=== PATIENT | male | born 1950 | race Caucasian/White ===

== ENCOUNTER 2016-11-10 19:29 | Inpatient (IN) ==
[2016-11-10] MEDS ORDERED: MORPHINE 2 MG/1 ML SYRINGE IV STA (20:25)
[2016-11-10] MEDS ORDERED: NITROGLYCERIN 2% OINT 1 INCH/GM PACK TOP STA (20:25)
[2016-11-10] MEDS ORDERED: methylPREDNISolone SOD SUC 125 MG/2 ML VIAL IV STA (20:25)
[2016-11-10] MEDS ORDERED: LEVOFLOXACIN INJ 750 MG in PREMIX 1 EACH IV STA (20:25)
[2016-11-10] MEDS ORDERED: ASPIRIN 325 MG TABLET PO STA (20:25)
[2016-11-10] MEDS ORDERED: ONDANSETRON 4 MG/2 ML VIAL IV STA (20:25)
[2016-11-10] MEDS ORDERED: ALBUTEROL NEB SOLN 5 MG/ML 20 ML/BOTTLE CONT NEB STA (20:25)
[2016-11-10 20:35] LABS: Basophils # 0.1 10*3/uL (0.0-0.2); Basophils % 0.4 % (0.0-0.8); Eosinophils # 0.1 10*3/uL (0.0-0.87); Eosinophils % 0.4 % (0.00-10.9); Hematocrit 40.5 VOL% (42.0-52.0); Hemoglobin 13.6 GM/DL (14.0-18.0); Immature Granulocytes % 0.5 %; Lymphocytes # 0.8 10*3/uL (1.4-4.0); Lymphocytes % 4.1 % (21.2-54.2); Mean Corpuscular HGB Conc 33.6 GM/DL (32-36); Mean Corpuscular Hemoglobin 32 PG (27-34); Mean Corpuscular Volume 94.8 FL (87-102); Mean Platelet Volume 10.7 FL (9.6-12.0); Monocytes # 1.8 10*3/uL (0.11-0.8); Monocytes % 10.1 % (1.7-12.7); Neutrophils # 15.4 10*3/uL (1.4-7.4); Neutrophils % 84.5 % (38.7-73.9); Platelet Count 252 T/CUMM (130-400); Red Blood Count 4.27 MC/CUMM (3.8-5.5); Red Cell Distribution Width 11.4 % (9.3-17.3); White Blood Count 18.2 T/CUMM (4-12)
--- NOTE | 2016-11-10 20:37 | Emergency Department Note ---
Gustavo Barba Brooke, am scribing for, and in the presence of, Jaswinder Liang MD 20 :31. Garth Barba Charles R, MD, personally performed the services described in this documentation, ascribed by Sherine Chen in my presence, and it is both accurate and complete . Arrival - Arrival Chief Complaint: Chest Pain Stated Complaint: chest pain and shortness of breath ED Nursing Triage Note: pt to triage via wc with c/o having chest pain with sob , and nausea denies vomiting. 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 Mode of Arrival: Wheelchair Limitations: No Limitations Source: Patient, RN Notes Reviewed Time Seen by Provider: 11/10/16 19:58 - History of Present Illness HPI Narrative: Patient is a 66 year old male who presents to the ED with c/o SOB and chest pain that started about one hour prior to arrival. Patient says the chest pain is located in the center of his chest. He took two nitro prior to arrival but says they are old and he did not get a headache after taking them. Patient says he has also had a productive cough with clear mucous. He also complains of left side pain, fever, and chills but denies any body aches. His temperature during triage was 100.0. Patient says he does not have home oxygen but does have a nebulizer. He has PMHx of HTN, OK, and COPD. Patient says his OK was about four years ago and he did have some stents placed. Patient's Manager Publishing is Dr. Monique and his Primary Care Provider is Dr. Goodman. Patient is a smoker. Onset (ago): hour(s) (1) Allergies/Adverse Reactions: Allergies Allergy/AdvReac Type Severity Reaction Status Date / Time Penicillins Allergy Unknown/Unable Verified 10/11/16 18:13 to obtain Home Medications: Home Medications Medication Instructions Recorded Confirmed Type Aspirin [Ecotrin] 325 mg PO QAM 10/11/16 11/10/16 History Carvedilol [Coreg] 3.125 mg PO BID 10/11/16 11/10/16 History Furosemide Tab [Lasix Tab] 10 mg PO QAM 10/11/16 11/10/16 History Losartan Potassium 100 mg PO QAM 10/11/16 11/10/16 History Magnesium Chloride [Mag Delay] 64 mg PO QAM 10/11/16 11/10/16 History Minoxidil 2.5 mg PO BID 10/11/16 11/10/16 History Pantoprazole Tab [Protonix Tab] 40 mg PO QAM 10/11/16 11/10/16 History Roflumilast [Daliresp] 500 mcg PO QAM 10/11/16 11/10/16 History amLODIPine [Norvasc] 10 mg PO QAM 10/11/16 11/10/16 History buPROPion [Wellbutrin] 75 mg PO BID 10/11/16 11/10/16 History hydroCHLOROthiazide 25 mg PO QAM 10/11/16 11/10/16 History [Hydrochlorothiazide] Acetaminophen Tab [Tylenol Tab] 500 mg PO Q4H 11/10/16 11/10/16 History Albuterol Neb [Proventil Neb] 2.5 mg RESP TX BID 11/10/16 11/10/16 History Ipratropium/Albuterol Inhaler 1 - 2 puff INH QID PRN 11/10/16 11/10/16 History [Combivent Respimat Inhaler] Krill/Om-3/Dha/Epa/Phospho/Ast 1 each PO QAM 11/10/16 11/10/16 History [[place]-3 Krill Oil 300 mg Sfgl] Nebivolol [Bystolic] 5 mg PO QAM 11/10/16 11/10/16 History Nitroglycerin Sl Tab [Nitrostat] 0.4 mg SL Q5M PRN 11/10/16 11/10/16 History Tiotropium Inhalation [Spiriva 18 mcg INH QAM 11/10/16 11/10/16 History Handihaler] Review of System - Review of System 12 point system: reviewed and no additional remarkable complaints except as stated - Review of System Constitutional: Present: chills, fever Respiratory: Present: cough (productive with clear mucous), respiratory distress (SOB) Cardiovascular: Present: chest pain (middle) Musculoskeletal: Present: other (left side pain) Skin: Absent: rash Neurological: Absent: headache Medical,Surgical,& Family Hx - Medical History Cardio: History of: Hypertension, OK, Cardiovascular Problems (stents) Respiratory: History of: COPD - Social History Smoking Status: Current every day smoker Frequency of Alcohol Use: None Type of Drug Use: None Exam Vital Signs: Vital Signs Temperature 100.4 F H 11/10/16 20:02 Pulse Rate 112 H 11/10/16 20:02 Respiratory Rate 22 11/10/16 20:02 Blood Pressure 153/69 11/10/16 20:02 O2 Sat by Pulse Oximetry 90 L 11/10/16 20:02 - General General appearance: alert, in no apparent distress, other (Visibly SOB) - Head Head exam: Present: atraumatic, normocephalic - Eye Eye exam: Present: normal appearance, PERRL, EOMI - ENT ENT exam: Present: normal exam - Neck Neck exam: Present: normal inspection - Chest Chest inspection: Present: normal inspection - Respiratory Respiratory exam: Present: accessory muscle use, rales (base), other (decreased breath sounds that are worse on left than right) - Cardiovascular Cardiovascular exam: Present: normal rhythm, tachycardia, normal heart sounds - Abdominal Exam Abdominal exam: Present: soft. Absent: distention, tenderness - Extremities Exam Extremities exam: Present: pedal edema (+1), other (sling on right arm due to previous fracture) - Back Exam Back exam: Present: normal inspection - Neurological Exam Neurological exam: Present: alert, oriented X3 - Psychiatric Psychiatric exam: Present: normal affect, normal mood - Skin Skin exam: Present: warm, dry, intact, normal color Course - Consultations Consultation #1: Dr. Galvez will admit the patient Dr. Jose Goodman Time: 21:17 Results - Labs CBC & BMP: 11/10/16 19:54 11/10/16 19:54 Lab Results: I have reviewed the patients labs Labs: Laboratory Tests 11/10/16 11/10/16 19:54 19:54 WBC 18.2 H Hgb 13.6 L Hct 40.5 L Neut % (Auto) 84.5 H Lymph % (Auto) 4.1 L Neut # (Auto) 15.4 H Lymph # (Auto) 0.8 L [place] # (Auto) 1.8 H Sodium 134 L Chloride 92 L Glucose 113 H Calculated Osmolality 268.2 L Magnesium 1.6 L Globulin 3.7 H Albumin/Globulin Ratio 0.9 L Critical Care Time Critical Care Time: Yes Total Critical Care Time: 60 Disposition Clinical Impression: Atypical chest pain, Fever, COPD exacerbation, Left lower lobe pneumonia Case discussed with: patient, patient's family Disposition: Still a Patient Condition: Stable Time of Disposition: 21:18
[2016-11-10 20:47] LABS: Albumin 3.4 G/DL (3.4-5.0); Bilirubin,Total 0.4 MG/DL (0.2-1.0); Calcium 9.4 MG/DL (8.5-10.1); Magnesium 1.6 MG/DL (1.8-2.4); Osmolality,Calculated 268.2 MOS/KG (273-304); Potassium 3.9 MMOL/L (3.5-5.1); Total Protein 7.1 G/DL (6.4-8.3)
--- NOTE | 2016-11-10 21:11 | XRay Report ---
Referring Physician: Jaswinder Liang Exam: XR chest 1V portable Date: November 10, 2016 at 8:14 PM Reason: Chest pain Comparison: Chest one view portable October 11, 2016 Findings: The cardiac silhouette is normal in size. Hazy interstitial opacities are seen within the left mid and lower lung zones. This could represent asymmetric pulmonary edema or pneumonia. There are also a few calcified granulomas within both lungs. No pneumothorax or pleural effusion is identified. No acute osseous process is seen. Impression: There are hazy interstitial opacities within the left mid and lower lung zones. This could represent asymmetric pulmonary edema or pneumonia. PROCEDURE INTERPRETED AT [facility] DEPARTMENT OF RADIOLOGY Final Report Signed by: Dr. Pradeep Merchant
[2016-11-10] MEDS ORDERED: MAGNESIUM SULF RIDER 2 GM in PREMIX 1 EACH IV STA (21:16)
[2016-11-10] MEDS ORDERED: ONDANSETRON 4 MG/2 ML VIAL ONE (21:20)
[2016-11-10] MEDS ORDERED: LEVOFLOXACIN INJ 150 ML IV ONE (21:20)
[2016-11-10] MEDS ORDERED: NITROGLYCERIN 2% OINT 1 INCH/GM PACK TOP ONE (21:20)
[2016-11-10 21:21] LABS: Eosinophils 1 % (0-10); Lymphocytes 3 % (20-55); Platelet Estimate Normal; Segmented Neutrophils 88 % (50-85); Total Cells Counted 100
[2016-11-10] MEDS ORDERED: methylPREDNISolone SOD SUC 125 MG/2 ML VIAL ONE (21:21)
[2016-11-10] MEDS ORDERED: ASPIRIN 325 MG TABLET ONE (21:21)
[2016-11-10] MEDS ORDERED: MORPHINE 2 MG/1 ML SYRINGE ONE (21:21)
[2016-11-10] MEDS ORDERED: MAGNESIUM SULF RIDER 50 ML IV ONE (21:47)
[2016-11-10] MEDS ORDERED: MORPHINE 2 MG/1 ML SYRINGE IV PRN (23:46)
[2016-11-10] MEDS ORDERED: ACETAMINOPHEN 325 MG TABLET PO PRN (23:46)
[2016-11-10] MEDS ORDERED: ALBUTEROL/IPRATROPIUM 3 ML NEB RESP TX PRN (23:46)
[2016-11-10] MEDS ORDERED: ONDANSETRON 4 MG/2 ML VIAL IV PRN (23:46)
[2016-11-10] MEDS ORDERED: NITROGLYCERIN SL 0.4 MG TABLET SL PRN (23:46)
[2016-11-11] MEDS: SODIUM CHLORIDE 0.9% 1,000 ML IV SCH ×2 (01:01→14:16)
[2016-11-11 02:59] LABS: Basophils % 0.2 % (0.0-0.8); Hematocrit 38.5 VOL% (42.0-52.0); Hemoglobin 12.7 GM/DL (14.0-18.0); Immature Granulocytes % 0.4 %; Immature Granulocytes Absolute 0.08 #; Lymphocytes # 0.4 10*3/uL (1.4-4.0); Lymphocytes % 1.9 % (21.2-54.2); Mean Corpuscular Hemoglobin 32 PG (27-34); Mean Corpuscular Volume 96.3 FL (87-102); Monocytes # 0.4 10*3/uL (0.11-0.8); Monocytes % 1.9 % (1.7-12.7); Neutrophils # 18.6 10*3/uL (1.4-7.4); Neutrophils % 95.6 % (38.7-73.9); Platelet Count 224 T/CUMM (130-400); Red Cell Distribution Width 11.4 % (9.3-17.3); White Blood Count 19.4 T/CUMM (4-12)
[2016-11-11 03:46] LABS: Band Neutrophils 2 % (0-10); Segmented Neutrophils 98 % (50-85)
[2016-11-11 03:47] LABS: Platelet Estimate Normal; Total Cells Counted 100
[2016-11-11 04:04] LABS: Albumin 3.2 G/DL (3.4-5.0); Bilirubin,Total 0.6 MG/DL (0.2-1.0); Calcium 9.1 MG/DL (8.5-10.1); Magnesium 2.3 MG/DL (1.8-2.4); Osmolality,Calculated 266.5 MOS/KG (273-304); Potassium 4.1 MMOL/L (3.5-5.1); Total Protein 6.1 G/DL (6.4-8.3)
[2016-11-11] MEDS ORDERED: ACETAMINOPHEN 500 MG TABLET PO SCH (06:00)
[2016-11-11] MEDS: methylPREDNISolone SOD SUC 40 MG/1 ML VIAL IV SCH ×3 (06:06→21:32)
--- NOTE | 2016-11-11 06:20 | EKG Report ---
Stationary ECG Study [facility] ER Test Date: 11/10/2016 7:41:54 PM Pat Name: KESHA LANGSTON Department: Room: 293 Gender: M Cvicu Nurse: Zahra : 1950 Requested by: Kesha Jessica Order Number: [id number] Reading MD: KAMRAN GROVER Intervals [place] Rate: 108 P: 109 W[place]: 163 QRS: 35 QRSD: 107 T: 92 QT: 306 QTc: 369 Interpretive Statements SINUS TACHYCARDIA INDETERMINATE AXIS CANNOT RULE OUT ANTERIOR INFARCT, AGE UNDETERMINED MODERATE ST DEPRESSION Electronically Signed On 11-11-16 11:41:23 [employer] by KAMRAN GROVER [email or web address]
--- NOTE | 2016-11-11 07:46 | XRay Report ---
XR chest 2V Date: 11/11/2016 4:00 AM History: Shortness of breath Comparison: 11/10/2016 Technique: PA and lateral chest Findings: The heart is normal in size with uncoiling of the aorta. Persistent diffuse parenchymal findings in the left mid to lower lung zone with minimally progressive atelectasis. Stable mediastinum. Osteopenia with fracture of the mid right humerus and chronic-appearing compression of L1. Impression: Residual infiltration/asymmetric pulmonary edema in the left mid to lower lung zone with minimally increased atelectasis. Mid right humeral fracture with chronic appearing compression fracture of L1. PROCEDURE INTERPRETED AT [facility] DEPARTMENT OF RADIOLOGY Final Report Signed by: Dr. Luly Dacosta
[2016-11-11] MEDS: ALBUTEROL 2.5 MG/3 ML NEB RESP TX SCH ×2 (08:06→19:44)
[2016-11-11] MEDS: IPRATROPIUM 500 MCG/2.5 ML NEB RESP TX SCH ×4 (08:06→19:44)
--- NOTE | 2016-11-11 08:28 | Cardiology Consult Note ---
<Margy Villavicencio E - Last Filed: 11/11/16 08:41> Assessment and Plan - Time spent with patient Time spent with patient: Greater than 30 minutes (due to assessment, plan, and documentation) (1) Atypical chest pain Status: Acute Assessment and plan: Troponins negative. Will repeat serial EKG's. His pain is likely coming from his pneumonia. Given his risk factors and known disease, he will need follow up with Dr. Monique following discharge. He may require risk stratification with an outpatient stress test in the future. Current Visit: Yes (2) Left lower lobe pneumonia Status: Acute Assessment and plan: Pulmonology is following. He is on breathing treatments and antibiotics. Current Visit: Yes (3) Fever Status: Acute Assessment and plan: Tylenol PRN. He is receiving antibiotics for his pneumonia. Current Visit: Yes (4) COPD exacerbation Status: Acute Assessment and plan: Pulmonology following. He is receiving IV steroids and breathing treatments. Current Visit: Yes (5) Coronary artery disease Status: Chronic Assessment and plan: S/P C w/ stent placement in September 2012. Currently unable to access old records. He may require risk stratification in the future but I believe this can be done on an outpatient basis. Current Visit: Yes (6) Status post coronary artery stent placement Status: Chronic Assessment and plan: Done 09/2012. Current Visit: Yes (7) Hypertension Status: Chronic Assessment and plan: Currently well controlled. Continue current plan of care. Will adjust as needed. Current Visit: Yes (8) GERD (gastroesophageal reflux disease) Status: Chronic Assessment and plan: Continue PPI. Current Visit: Yes (9) Tobacco abuse Status: Chronic Assessment and plan: His approximately 3-4 months ago and he has been a bit depressed. This does not help his motivation to quit smoking. Current Visit: Yes History of Present Illness - Data of Consult Patient: known to practice within the last 3 years (followed by Dr. Monique) Consult date: 11/11/16 Requesting Physician: Jose Goodman Primary care physician: Jose Goodman - Consult Narrative Reason for consult: chest pain, SOB History of present illness: Mr. Cruz is a 66 year old male followed by Dr. Monique. He has a history of atherosclerotic heart disease status post stenting and angioplasty , prior HI, chronic obstructive pulmonary disease, hypertension, gastroesophageal reflux disease with hiatal hernia, arthritis, and tobacco abuse. He presented to the emergency room yesterday after a sudden onset of chest pain and shortness of breath. He reports he had been in his usual state of health until yesterday afternoon around 1630 when he started having a sharp midsternal chest pain and felt like he couldn't breathe. He tells me it was slightly similar to his previous HI pain but was not as intense and he did not have the pressure he felt previously. He took 2 sublingual nitroglycerin without relief but does note that these NTG were several years old. His pain lasted until he arrived at the ER at [facility]. This pain is nonreproducbile, it did not radiate. He can identify no aggravating or alleviating factors. He tells me he does not usually have chest pain or dyspnea on exertion. He denies palpitations, dizziness, lightheadedness, or syncope. He does report some bilateral lower extremity edema and recent fever and chills. He also tells me due to his COPD and hiatal hernia, he usually sleeps in the recliner in order to be more comfortable. His WBC is 19.4 this morning. He has had 3 sets of negative troponins. BNP is 17. EKG is poor quality but shows sinus rhythm with some ST depression. We will repeat his EKG this morning. CC: Jose Goodman, DO - Home Medications and Allergies Home Medications: Home Medications Medication Instructions Recorded Confirmed Type Aspirin [Ecotrin] 325 mg PO QAM 10/11/16 11/10/16 History Carvedilol [Coreg] 3.125 mg PO BID 10/11/16 11/10/16 History Furosemide Tab [Lasix Tab] 10 mg PO QAM 10/11/16 11/10/16 History Losartan Potassium 100 mg PO QAM 10/11/16 11/10/16 History Magnesium Chloride [Mag Delay] 64 mg PO QAM 10/11/16 11/10/16 History Minoxidil 2.5 mg PO BID 10/11/16 11/10/16 History Pantoprazole Tab [Protonix Tab] 40 mg PO QAM 10/11/16 11/10/16 History Roflumilast [Daliresp] 500 mcg PO QAM 10/11/16 11/10/16 History amLODIPine [Norvasc] 10 mg PO QAM 10/11/16 11/10/16 History buPROPion [Wellbutrin] 75 mg PO BID 10/11/16 11/10/16 History hydroCHLOROthiazide 25 mg PO QAM 10/11/16 11/10/16 History [Hydrochlorothiazide] Acetaminophen Tab [Tylenol Tab] 500 mg PO Q4H 11/10/16 11/10/16 History Albuterol Neb [Proventil Neb] 2.5 mg RESP TX BID 11/10/16 11/10/16 History Ipratropium/Albuterol Inhaler 1 - 2 puff INH QID PRN 11/10/16 11/10/16 History [Combivent Respimat Inhaler] Krill/Om-3/Dha/Epa/Phospho/Ast 1 each PO QAM 11/10/16 11/10/16 History [[place]-3 Krill Oil 300 mg Sfgl] Nebivolol [Bystolic] 5 mg PO QAM 11/10/16 11/10/16 History Nitroglycerin Sl Tab [Nitrostat] 0.4 mg SL Q5M PRN 11/10/16 11/10/16 History Tiotropium Inhalation [Spiriva 18 mcg INH QAM 11/10/16 11/10/16 History Handihaler] Aspirin [Ecotrin] 325 mg PO DAILY 11/11/16 11/11/16 History Cilostazol [Pletal] 50 mg PO BID 11/11/16 11/11/16 History Ipratropium/Albuterol Inhaler 1 - 2 puffs RESP TX DIRECTED PRN 11/11/1611/11 History [Combivent Respimat Inhaler] Simvastatin 10 mg PO DAILY 11/11/16 11/11/16 History Allergies/Adverse Reactions: Allergies Allergy/AdvReac Type Severity Reaction Status Date / Time Penicillins Allergy Unknown/Unable Verified 10/11/16 18:13 to obtain - Constitutional Constitutional: Present: chills, fever(s). Absent: anorexia, daytime sleepiness , excessive sweating, fatigue, frequent falls, headache(s), increased appetite, lethargy, malaise, night sweats, stops breathing during sleep, weakness, weight gain, weight loss - EENT Eyes: Absent: blurry vision, diplopia, loss of vision Ears: Absent: decreased hearing, ear discharge, ear pain Nose, mouth and throat: Absent: dysphagia, epistaxis, headache(s), hoarseness, lip swelling, nasal congestion, neck mass, neck pain, sinus pressure, sore throat, throat swelling, tongue swelling, vertigo - Cardiovascular Cardiovascular: Present: as per HPI, chest pain at rest, dyspnea, edema. Absent : chest pain with activity, claudication, diaphoresis, dyspnea on exertion, radiating jaw, neck or arm pain, lightheadedness, orthopnea, palpitations, PND - Respiratory Respiratory: Present: as per HPI, cough, dyspnea, wheezing. Absent: hemoptysis , dyspnea on exertion, pain on inspiration - Gastrointestinal Gastrointestinal: Absent: abdominal pain, bloating, change in bowel habits, constipation, diarrhea, heartburn, hematemesis, hematochezia, loose stools, melena, nausea, vomiting - Genitourinary Genitourinary: Absent: difficulty urinating, dysuria, flank pain, hematuria, nocturia - Musculoskeletal Musculoskeletal: Absent: arthralgias, back pain, joint swelling, limited range of motion, muscle cramps, muscle weakness, myalgias - Neurological Neurological: Absent: abnormal gait, abnormal speech, behavioral changes, confusion, convulsions, disequilibrium, dizziness, focal weakness, frequent falls, headache(s), memory loss, numbness, paresthesias, radicular pain, syncope , tremor(s) - Psychiatric Psychiatric: Absent: anxiety, confusion, depression, panic attacks - Endocrine Endocrine: Present: cold intolerance. Absent: fatigue, heat intolerance, polydipsia, polyphagia - Hematologic/Lymphatic Hematologic/Lymphatic: Absent: easy bleeding, easy bruising, lymphadenopathy Medical,Surgical,& Family Hx - Medical History Cardio: History of: Hypertension, HI, Cardiovascular Problems (stents) Respiratory: History of: COPD - Social History Smoking Status: Current every day smoker Frequency of Alcohol Use: None Type of Drug Use: None Physical Examination Vital Signs Temp Pulse Resp BP Pulse Ox 100.0 F H 95 H 22 153/69 89 L 11/10/16 19:33 11/10/16 19:33 11/10/16 19:33 11/10/16 19:33 11/10/16 19:33 General: Present: Appears Well, No Apparent Distress HEENT: Present: Normocephaly, Mucus Membranes Moist Neck: Present: Supple Neck, Midline Trachea, No Masses, No Bruit Cardiac: Present: Reg Rate and Rhythm, No Murmur, Tachycardia Lungs: Present: Wheezes (scattered), Scattered Rhonchi (more prominent posteriorly and in the lower bases) Neuro: Present: Grossly Intact. Absent: Resting Tremor, Essential Tremor Abdomen: Present: Soft, Active Bowel Sounds, No Masses, Non-Tender Skin: Present: Clear. Absent: Rash Musculoskeletal: Present: No Fluid Collection, No Pain, Normal Range of Motion Extremities: Present: Normal Gait, No Clubbing, No Cyanosis, Normal Upper Extr. Pulses, Normal Lower Extr. Pulses, +1 Edema (pitting to BLE) Result/EKG - Labs CBC & BMP: 11/11/16 02:51 11/11/16 02:51 Lab Results: I have reviewed the past 24 hour labs Labs: Laboratory Results - last 24 hr 11/10/16 11/11/16 11/11/16 23:48 02:51 02:51 WBC 19.4 H RBC 4.00 Hgb 12.7 L Hct 38.5 L MCV 96.3 MCH 32 MCHC 33.0 RDW 11.4 Plt Count 224 MPV 10.0 Neut % (Auto) 95.6 H Lymph % (Auto) 1.9 L [place] % (Auto) 1.9 Eos % (Auto) 0.0 Baso % (Auto) 0.2 Neut # (Auto) 18.6 H Lymph # (Auto) 0.4 L [place] # (Auto) 0.4 Eos # (Auto) 0.0 Baso # (Auto) 0.0 Total Counted 100 Immature Gran % 0.4 Nucleated RBC % 0.0 Immature Gran # 0.08 Segmented Neutrophils 98 H Band Neutrophils 2 Nucleated RBCs # 0.00 Platelet Estimate Normal Sodium Potassium Chloride Carbon Dioxide Anion Gap BUN Creatinine GFR Calculation BUN/Creatinine Ratio Glucose Calculated Osmolality Calcium Magnesium Total Bilirubin AST ALT Alkaline Phosphatase Troponin I < 0.015 < 0.015 B-Natriuretic Peptide Total Protein Albumin Globulin Albumin/Globulin Ratio 11/11/16 11/11/16 02:51 02:51 WBC RBC Hgb Hct MCV MCH MCHC RDW Plt Count MPV Neut % (Auto) Lymph % (Auto) [place] % (Auto) Eos % (Auto) Baso % (Auto) Neut # (Auto) Lymph # (Auto) [place] # (Auto) Eos # (Auto) Baso # (Auto) Total Counted Immature Gran % Nucleated RBC % Immature Gran # Segmented Neutrophils Band Neutrophils Nucleated RBCs # Platelet Estimate Sodium 132 L Potassium 4.1 Chloride 90 L Carbon Dioxide 31 Anion Gap 15.1 H BUN 13 Creatinine 1.00 GFR Calculation 95 BUN/Creatinine Ratio 13.00 Glucose 155 H Calculated Osmolality 266.5 L Calcium 9.1 Magnesium 2.3 Total Bilirubin 0.60 AST 18 ALT 22 Alkaline Phosphatase 104 Troponin I B-Natriuretic Peptide 17 Total Protein 6.1 L Albumin 3.2 L Globulin 2.9 Albumin/Globulin Ratio 1.1 - EKG EKG results: interpreted by me, sinus rhythm (with some ST depression) <Juan Francisco De La Garza - Last Filed: 11/11/16 10:37> History of Present Illness - Consult Narrative History of present illness: Mr. Cruz is a 66 year old male admitted with atypical chest discomfort. He does have a history of coronary disease and has had stenting in the past. His symptoms are not typical for angina. He does have leukocytosis and abnormal chest x-ray consistent with pneumonia and I think it is probably that is the etiology of her chest discomfort. Serial troponins are negative. We will continue following overall I think this is pulmonary in origin. He is wheezing and is getting started on treatment for that. I have discussed in detail the particulars of this case and I have examined the patient and reviewed the patient's chart both current and old. I was directly involved in the patient's evaluation and management and I completely agree with Margy Villavicencio, SELENA saw some sorry regarding this patient's evaluation and treatment plan. CC: Jose Goodman, DO Physical Examination Vital Signs Temp Pulse Resp BP Pulse Ox 100.0 F H 95 H 22 153/69 89 L 11/10/16 19:33 11/10/16 19:33 11/10/16 19:33 11/10/16 19:33 11/10/16 19:33 Result/EKG - Labs CBC & BMP: 11/11/16 02:51 11/11/16 02:51 Labs: Laboratory Results - last 24 hr 11/10/16 11/11/16 11/11/16 23:48 02:51 02:51 WBC 19.4 H RBC 4.00 Hgb 12.7 L Hct 38.5 L MCV 96.3 MCH 32 MCHC 33.0 RDW 11.4 Plt Count 224 MPV 10.0 Neut % (Auto) 95.6 H Lymph % (Auto) 1.9 L [place] % (Auto) 1.9 Eos % (Auto) 0.0 Baso % (Auto) 0.2 Neut # (Auto) 18.6 H Lymph # (Auto) 0.4 L [place] # (Auto) 0.4 Eos # (Auto) 0.0 Baso # (Auto) 0.0 Total Counted 100 Immature Gran % 0.4 Nucleated RBC % 0.0 Immature Gran # 0.08 Segmented Neutrophils 98 H Band Neutrophils 2 Nucleated RBCs # 0.00 Platelet Estimate Normal Sodium Potassium Chloride Carbon Dioxide Anion Gap BUN Creatinine GFR Calculation BUN/Creatinine Ratio Glucose Calculated Osmolality Calcium Magnesium Total Bilirubin AST ALT Alkaline Phosphatase Troponin I < 0.015 < 0.015 B-Natriuretic Peptide Total Protein Albumin Globulin Albumin/Globulin Ratio 11/11/16 11/11/16 11/11/16 02:51 02:51 07:38 WBC RBC Hgb Hct MCV MCH MCHC RDW Plt Count MPV Neut % (Auto) Lymph % (Auto) [place] % (Auto) Eos % (Auto) Baso % (Auto) Neut # (Auto) Lymph # (Auto) [place] # (Auto) Eos # (Auto) Baso # (Auto) Total Counted Immature Gran % Nucleated RBC % Immature Gran # Segmented Neutrophils Band Neutrophils Nucleated RBCs # Platelet Estimate Sodium 132 L Potassium 4.1 Chloride 90 L Carbon Dioxide 31 Anion Gap 15.1 H BUN 13 Creatinine 1.00 GFR Calculation 95 BUN/Creatinine Ratio 13.00 Glucose 155 H Calculated Osmolality 266.5 L Calcium 9.1 Magnesium 2.3 Total Bilirubin 0.60 AST 18 ALT 22 Alkaline Phosphatase 104 Troponin I B-Natriuretic Peptide 17 29 Total Protein 6.1 L Albumin 3.2 L Globulin 2.9 Albumin/Globulin Ratio 1.1
--- NOTE | 2016-11-11 08:30 | Pulmonology Consult Note ---
History of Present Illness Chief complaint: Chest pain cough shortness of breath History of present illness: Mr. Cruz is a 66 year old male who has known COPD. He also has tracheomalacia. He continues to smoke 5 or 6 cigarettes a day. He has a nebulizer at home but no oxygen. He had the onset yesterday of cough and then pain in his sternal area. The pain did not go anywhere else. He has had fever to 100. He has an elevated white blood count. I saw him 5 years ago for chronic cough. We obtained a chest CT and found the saberlike tracheomalacia. This tends to make one half prolonged respiratory infections when they get one. He came into the emergency room last night and had a chest x-ray indicating infiltrate in the left base which appears to be pneumonia. Cardiac enzymes have been negative and EKG was okay. He does have a history of a previous coronary stent. I should add that his about 3 months ago and he has been somewhat depressed. He has been very difficult for him to stop smoking, because of that he says. Unable to get into the problem list section so I will list diagnoses here: #1 community-acquired left lower lobe pneumonia. Since this patient has COPD and tracheomalacia will need broader coverage. I will add cefepime to the Levaquin. 2. COPD. agree with bronchodilators. We will add mucolytic's and chest PT. #3 tracheomalacia. this usually makes respiratory infections take longer to clear. Difficult for patient to cough up sputum. May have to have a bronchoscopy if he does not improve in a few days. 4. Persistent tobacco abuse. This was again discussed with him the need to totally quit. 5. History of atherosclerotic heart disease. He is having chest pain but I think it is related to his acute respiratory infection. Cardiac enzymes have been ordered. His EKG is nonspecific. Cardiology is seeing. Home Medications Medication Instructions Recorded Confirmed Type Aspirin [Ecotrin] 325 mg PO QAM 10/11/16 11/10/16 History Carvedilol [Coreg] 3.125 mg PO BID 10/11/16 11/10/16 History Furosemide Tab [Lasix Tab] 10 mg PO QAM 10/11/16 11/10/16 History Losartan Potassium 100 mg PO QAM 10/11/16 11/10/16 History Magnesium Chloride [Mag Delay] 64 mg PO QAM 10/11/16 11/10/16 History Minoxidil 2.5 mg PO BID 10/11/16 11/10/16 History Pantoprazole Tab [Protonix Tab] 40 mg PO QAM 10/11/16 11/10/16 History Roflumilast [Daliresp] 500 mcg PO QAM 10/11/16 11/10/16 History amLODIPine [Norvasc] 10 mg PO QAM 10/11/16 11/10/16 History buPROPion [Wellbutrin] 75 mg PO BID 10/11/16 11/10/16 History hydroCHLOROthiazide 25 mg PO QAM 10/11/16 11/10/16 History [Hydrochlorothiazide] Acetaminophen Tab [Tylenol Tab] 500 mg PO Q4H 11/10/16 11/10/16 History Albuterol Neb [Proventil Neb] 2.5 mg RESP TX BID 11/10/16 11/10/16 History Ipratropium/Albuterol Inhaler 1 - 2 puff INH QID PRN 11/10/16 11/10/16 History [Combivent Respimat Inhaler] Krill/Om-3/Dha/Epa/Phospho/Ast 1 each PO QAM 11/10/16 11/10/16 History [[place]-3 Krill Oil 300 mg Sfgl] Nebivolol [Bystolic] 5 mg PO QAM 11/10/16 11/10/16 History Nitroglycerin Sl Tab [Nitrostat] 0.4 mg SL Q5M PRN 11/10/16 11/10/16 History Tiotropium Inhalation [Spiriva 18 mcg INH QAM 11/10/16 11/10/16 History Handihaler] Aspirin [Ecotrin] 325 mg PO DAILY 11/11/16 11/11/16 History Cilostazol [Pletal] 50 mg PO BID 11/11/16 11/11/16 History Ipratropium/Albuterol Inhaler 1 - 2 puffs RESP TX DIRECTED PRN 11/11/1611/11 History [Combivent Respimat Inhaler] Simvastatin 10 mg PO DAILY 11/11/16 11/11/16 History Allergies Allergy/AdvReac Type Severity Reaction Status Date / Time Penicillins Allergy Unknown/Unable Verified 10/11/16 18:13 to obtain 12 point system: reviewed and no additional remarkable complaints except as stated - Constitutional Constitutional: Present: malaise - EENT Nose, mouth and throat: Present: dysphagia - Cardiovascular Cardiovascular: Present: chest pain at rest, dyspnea, dyspnea on exertion, edema - Respiratory Respiratory: Present: cough, dyspnea, dyspnea on exertion, wheezing, pain on inspiration, change in phlegm color - Gastrointestinal Gastrointestinal: Present: dysphagia - Neurological Neurological: Present: syncope (He has had syncope in the past from a severe coughing spell.) Exam (Pulmonay) H&P - Constitutional Vitals: Period Temp Pulse Resp BP Sys/Aguilar Pulse Ox Last 24 Hr 98 F-99.4 F 70-105 18-23 117-122/58-59 92-100 Exam: Vital signs normal except for respiratory rate in the low 20s and O2 sat 98% on 2 L. HEENT: Pupils react to light. Throat is clear. Neck supple no bruits. Chest reveals expiratory wheezes bilaterally. A few scattered rhonchi as well. Heart rate is around 100 occasional premature beat. Abdomen soft nontender no masses bowel sounds present. Extremities no clubbing cyanosis she does have 1+ edema. He relates that he has been sleeping sitting up in a chair last several nights. Medical,Surgical,& Family Hx - Medical History Cardio: History of: Hypertension, DC, Cardiovascular Problems (stents) Respiratory: History of: COPD - Social History Smoking Status: Current every day smoker Frequency of Alcohol Use: None Type of Drug Use: None Results - Labs CBC & BMP: 11/11/16 02:51 11/11/16 02:51 Lab Results: I have reviewed the past 24 hour labs - Diagnostic Findings Procedure: Chest x-ray: image reviewed by me (Patchy left lower lobe infiltrate)
--- NOTE | 2016-11-11 08:40 | EKG Report ---
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
--- NOTE | 2016-11-11 08:56 | Family Practice History&Phys ---
Assessment and Plan (1) Atypical chest pain Status: Acute Assessment and plan: 11/11/2016: Appreciate cardiology services on this case I did agree that this is probably not cardiac pain I think he has got a pneumonia at this time. Will follow along. Current Visit: Yes (2) COPD exacerbation Status: Acute Assessment and plan: 11/11/2016: Currently given patient albuterol Atrovent nebulizers. Pulmonary is seen him we will consider steroids if not already only on. Patient also so gets Daliresp and we will continue this. Current Visit: Yes (3) Fever Status: Acute Assessment and plan: 11/11/2016: Antibiotics are in place at this time, including cefepime and Levaquin. Current Visit: Yes (4) Left lower lobe pneumonia Status: Acute Assessment and plan: 11/11/[address] were given breathing treatments and will continue this for now appreciate pulmonary Current Visit: Yes (5) Coronary artery disease Status: Chronic Assessment and plan: 11/11/2016.: I do not believe this is cardiac disease. Appreciate cardiology services looking patient. Will adjust medications accordingly Current Visit: Yes (6) Hypertension Status: Chronic Assessment and plan: 11/11/2016: Blood pressure is under good control Current Visit: Yes History of Present Illness Chief complaint: Chest pain, shortness of breath History of present illness: Mr. Cruz is a 66 year old male Patient well-known to me, comes to the clinic as a walk-in only have never really established. He has a history of chronic tobacco abuse, arthritis, recent fall approximately 5 weeks Everardo and fracture of the right humerus., Gastroesophageal reflux, hypertension, pulmonary disease and prior ND with angioplasty and stenting. States he developed some significant shortness of breath yesterday and it looks like he has had an acute COPD exacerbation. He did take 2 sublingual nitroglycerin without any relief. In the emergency room his troponins were negative. His pain was nonreproducible however and it was felt that admission was warranted for either a COPD exacerbation/unstable angina and also due to the fact that he may have pneumonic pattern based on x- ray studies. I have seen in the clinic on several occasions had given albuterol and steroid treatments in the recent past. Is very alert and oriented answers all questions appropriately present. He does have chronic loss COPD findings as mentioned. His white count was elevated on admission at 19,000. Has been admitted for IV antibiotics and appreciate cardiology as well as pulmonary services on this case Home Medications Medication Instructions Recorded Confirmed Type Aspirin [Ecotrin] 325 mg PO QAM 10/11/16 11/10/16 History Carvedilol [Coreg] 3.125 mg PO BID 10/11/16 11/10/16 History Furosemide Tab [Lasix Tab] 10 mg PO QAM 10/11/16 11/10/16 History Losartan Potassium 100 mg PO QAM 10/11/16 11/10/16 History Magnesium Chloride [Mag Delay] 64 mg PO QAM 10/11/16 11/10/16 History Minoxidil 2.5 mg PO BID 10/11/16 11/10/16 History Pantoprazole Tab [Protonix Tab] 40 mg PO QAM 10/11/16 11/10/16 History Roflumilast [Daliresp] 500 mcg PO QAM 10/11/16 11/10/16 History amLODIPine [Norvasc] 10 mg PO QAM 10/11/16 11/10/16 History buPROPion [Wellbutrin] 75 mg PO BID 10/11/16 11/10/16 History hydroCHLOROthiazide 25 mg PO QAM 10/11/16 11/10/16 History [Hydrochlorothiazide] Acetaminophen Tab [Tylenol Tab] 500 mg PO Q4H 11/10/16 11/10/16 History Albuterol Neb [Proventil Neb] 2.5 mg RESP TX BID 11/10/16 11/10/16 History Ipratropium/Albuterol Inhaler 1 - 2 puff INH QID PRN 11/10/16 11/10/16 History [Combivent Respimat Inhaler] Krill/Om-3/Dha/Epa/Phospho/Ast 1 each PO QAM 11/10/16 11/10/16 History [[place]-3 Krill Oil 300 mg Sfgl] Nebivolol [Bystolic] 5 mg PO QAM 11/10/16 11/10/16 History Nitroglycerin Sl Tab [Nitrostat] 0.4 mg SL Q5M PRN 11/10/16 11/10/16 History Tiotropium Inhalation [Spiriva 18 mcg INH QAM 11/10/16 11/10/16 History Handihaler] Aspirin [Ecotrin] 325 mg PO DAILY 11/11/16 11/11/16 History Cilostazol [Pletal] 50 mg PO BID 11/11/16 11/11/16 History Ipratropium/Albuterol Inhaler 1 - 2 puffs RESP TX DIRECTED PRN 11/11/1611/11 History [Combivent Respimat Inhaler] Simvastatin 10 mg PO DAILY 11/11/16 11/11/16 History Allergies Allergy/AdvReac Type Severity Reaction Status Date / Time Penicillins Allergy Unknown/Unable Verified 10/11/16 18:13 to obtain 12 point system: reviewed and no additional remarkable complaints except as stated (Except those mentioned in the H&P and past medical history) Medical,Surgical,& Family Hx - Medical History Cardio: History of: Hypertension, ND, Cardiovascular Problems (stents) Respiratory: History of: COPD Gastrointestinal: History of: GERD, GI Problems (hernia and ulcers) - Surgical History Cardiac Surgeries: Sugical HX of: Cardiac Catheterization (3 stents) - Social History Smoking Status: Current every day smoker Frequency of Alcohol Use: None Type of Drug Use: None Exam - Constitutional Vitals: Period Temp Pulse Resp BP Sys/Aguilar Pulse Ox Last 24 Hr 98 F-99.4 F 70-105 18-23 117-122/58-59 92-100 Exam: General he is alert and oriented and answers all questions appropriately. Is stable psychologically and emotionally. HEENT pupils are equally reactive to light extraocular movements are intact neck is supple trachea midline the oropharynx reveals poor dentition but there is moist mucous membranes. No angioedema or tonsillar exudate Cardiovascular weights regular 1/6 systolic ejection murmur Lungs positive rales and rhonchi as well as wheezing are noted. Patient is currently given getting a breathing treatment Abdomen soft nondistended nontender patient denies any pain Extremities 1+ bilateral edema lower extremities. Neurologically fully intact no lateralizing signs motor sensory deficits are present Results - Labs CBC & BMP: 11/11/16 02:51 11/11/16 02:51
[2016-11-11] MEDS ORDERED: PANTOPRAZOLE 40 MG VIAL IV SCH (09:00)
[2016-11-11] MEDS ORDERED: PANTOPRAZOLE 40 MG TABLET PO SCH (09:00)
[2016-11-11] MEDS: NEBIVOLOL 5 MG TABLET PO SCH (09:28)
[2016-11-11] MEDS: MINOXIDIL 2.5 MG TABLET PO SCH ×2 (09:28→21:32)
[2016-11-11] MEDS: FUROSEMIDE 20 MG TABLET PO SCH (09:28)
[2016-11-11] MEDS: MAGNESIUM CHLORIDE 64 MG TABLET PO SCH (09:28)
[2016-11-11] MEDS: ASPIRIN EC 325 MG TABLET PO SCH (09:29)
[2016-11-11] MEDS: LOSARTAN 50 MG TABLET PO SCH (09:29)
[2016-11-11] MEDS: PANTOPRAZOLE 40 MG TABLET PO SCH (09:29)
[2016-11-11] MEDS: amLODIPine 10 MG TABLET PO SCH (09:29)
[2016-11-11] MEDS: buPROPion 75 MG TABLET PO SCH ×2 (09:29→21:32)
[2016-11-11] MEDS: hydroCHLOROthiazide 25 MG TABLET PO SCH (09:30)
[2016-11-11] MEDS: CARVEDILOL 3.125 MG TABLET PO SCH ×2 (09:30→21:32)
[2016-11-11] MEDS: DOCUSATE SODIUM 100 MG CAPSULE PO SCH ×2 (09:30→21:32)
[2016-11-11] MEDS: OMEGA 3 ACID ETHYL ESTERS 1 GM CAPSULE PO SCH (09:31)
[2016-11-11] MEDS: ENOXAPARIN 40 MG/0.4 ML SYRINGE SUBCUT SCH (09:31)
[2016-11-11] MEDS: ROFLUMILAST 500 MCG TABLET PO SCH (09:34)
[2016-11-11] MEDS: CEFEPIME 1,000 MG in SODIUM CHLORIDE 0.9% 100 ML IV SCH ×2 (10:41→21:32)
--- NOTE | 2016-11-11 11:57 | ECHO Report ---
Jaswinder Cruz Exam Date: 11/11/2016 10:08 Referring Physician: Technologist: Rita FLEMING Age: 66 Ht (in): Wt (lb): Gender: M Exam Location: [facility] Echo Indications: chest pain, fever, copd, LLL pneumonia BP: / HR: Rhythm: Sinus Technical Quality: Fair IMPRESSIONS Moderate concentric left ventricular hypertrophy with diastolic dysfunction. Left ventricular ejection fraction is estimated at 55-60 %. Moderately increased right ventricular size. The right atrium is mildly enlarged. Mildly increased left atrial diameter. Mildly thickened mitral valve with mild mitral regurgitation. Aortic valve sclerosis without stenosis. Mild aortic valve regurgitation. Morphologically normal tricuspid valve. Moderate tricuspid valve regurgitation. Tricuspid regurgitation velocities suggest a PAP of 35.0 mmHg + RAP. Morphologically normal pulmonic valve. No pericardial effusion. Normal size aortic root and proximal ascending aorta. MEASUREMENTS (Male / Female) Normal Values 2D ECHO LV Diastolic Diameter PLAX 4.8 cm 4.2 - 5.9 / 3.9 - 5.3 cm LV Systolic Diameter PLAX 3.0 cm LV Fractional Shortening PLAX 36.8 % IVS Diastolic Thickness 1.5 cm 0.6 - 1.0 / 0.6 - 0.9 cm LVPW Diastolic Thickness 1.3 cm 0.6 - 1.0 / 0.6 - 0.9 cm RV Internal Dim ED PLAX 3.7 cm Aortic Root Diameter 3.2 cm LA Systolic Diameter LX 4.6 cm 3.0 - 4.0 / 2.7 - 3.8 cm DOPPLER TR Peak Velocity 296.0 cm/s TR Peak Gradient 35.0 mmHg FINDINGS Left Ventricle Moderate concentric left ventricular hypertrophy with diastolic dysfunction. Left ventricular ejection fraction is estimated at 55-60 %. Right Ventricle Moderately increased right ventricular size. Right Atrium The right atrium is mildly enlarged. Left Atrium Mildly increased left atrial diameter. Mitral Valve Mildly thickened mitral valve with mild mitral regurgitation. Aortic Valve Aortic valve sclerosis without stenosis. Mild aortic valve regurgitation. Tricuspid Valve Morphologically normal tricuspid valve. Moderate tricuspid valve regurgitation. Tricuspid regurgitation velocities suggest a PAP of 35.0 mmHg + RAP. Pulmonic Valve Morphologically normal pulmonic valve. Pericardium No pericardial effusion. Aorta Normal size aortic root and proximal ascending aorta. Juan Francisco De La Garza MD (Electronically Signed) Final Date: 11 November 2016 11:55
[2016-11-11] MEDS: ACETAMINOPHEN 500 MG TABLET PO PRN (18:33)
[2016-11-11] MEDS: DORNASE ALFA 2.5 MG/2.5 ML VIAL RESP TX SCH (19:44)
[2016-11-11] MEDS: LEVOFLOXACIN INJ 750 MG in PREMIX 1 EACH IV SCH (23:35)
[2016-11-12] MEDS: methylPREDNISolone SOD SUC 40 MG/1 ML VIAL IV SCH ×3 (05:59→22:25)
[2016-11-12] MEDS: SODIUM CHLORIDE 0.9% 1,000 ML IV SCH ×2 (05:59→21:40)
--- NOTE | 2016-11-12 06:01 | Family Practice Progress Note ---
Family Practice - PN: Subj Interval history: Patient states he had a reasonably good night for staying in the hospital and he thinks he is breathing a little bit better. He states is still coughing and wheezing however. He denies any chest pain associated with shortness of breath. Cardiovascular: Heart rate regular and there is no murmurs. Patient is noted to have normal sinus rhythm on monitor Respiratory: Patient has scattered expiratory wheezes in both lung fortune. Unnoticed chest x-ray showed left basilar infiltrate. Abdomen: The abdomen soft and nontender to palpation. Exam (Progress Note) - Constitutional Vitals: Period Temp Pulse Resp BP Sys/Aguilar Pulse Ox Last 24 Hr 98 F-99.3 F 59-76 18-22 120-136/58-74 91-99 Results - Labs CBC & BMP: 11/11/16 02:51 11/11/16 02:51 Lab Results: I have reviewed the past 24 hour labs Assessment and Plan (1) COPD exacerbation Status: Acute Assessment and plan: 11/12/2016: We will continue present therapy. Current Visit: Yes
[2016-11-12] MEDS: IPRATROPIUM 500 MCG/2.5 ML NEB RESP TX SCH ×4 (07:43→19:24)
[2016-11-12] MEDS: ALBUTEROL 2.5 MG/3 ML NEB RESP TX SCH ×2 (07:44→19:24)
[2016-11-12] MEDS: DORNASE ALFA 2.5 MG/2.5 ML VIAL RESP TX SCH ×2 (07:44→19:24)
[2016-11-12] MEDS: NEBIVOLOL 5 MG TABLET PO SCH (08:15)
--- NOTE | 2016-11-12 08:15 | EKG Report ---
Stationary ECG Study [facility] Test Date: 11/12/2016 8:14:39 AM Pat Name: KESHA LANGSTON Department: Room: 293 Gender: M Unit Controller: JUAN MANUEL : 1950 Requested by: Margy Villavicencio Order Number: [id number] Reading MD: DIAMOND BIRD Intervals [place] Rate: 59 P: 68 MN: 187 QRS: 7 QRSD: 110 T: 78 QT: 414 QTc: 413 Interpretive Statements SINUS RHYTHM SEPTAL MYOCARDIAL INFARCTION, PROBABLY OLD Electronically Signed On 11-13-16 11:12:18 PRODUCT DEVELOPMENT COORDINATOR by DIAMOND BIRD [id number]
[2016-11-12] MEDS: buPROPion 75 MG TABLET PO SCH ×2 (08:16→21:37)
[2016-11-12] MEDS: ASPIRIN EC 325 MG TABLET PO SCH (08:17)
[2016-11-12] MEDS: MINOXIDIL 2.5 MG TABLET PO SCH ×2 (08:17→21:38)
[2016-11-12] MEDS: amLODIPine 10 MG TABLET PO SCH (08:17)
[2016-11-12] MEDS: MAGNESIUM CHLORIDE 64 MG TABLET PO SCH (08:17)
[2016-11-12] MEDS: PANTOPRAZOLE 40 MG TABLET PO SCH (08:17)
[2016-11-12] MEDS: ROFLUMILAST 500 MCG TABLET PO SCH (08:18)
[2016-11-12] MEDS: LOSARTAN 50 MG TABLET PO SCH (08:18)
[2016-11-12] MEDS: DOCUSATE SODIUM 100 MG CAPSULE PO SCH ×2 (08:18→21:37)
[2016-11-12] MEDS: FUROSEMIDE 20 MG TABLET PO SCH (08:19)
[2016-11-12] MEDS: CEFEPIME 1,000 MG in SODIUM CHLORIDE 0.9% 100 ML IV SCH ×2 (08:19→21:41)
[2016-11-12] MEDS: hydroCHLOROthiazide 25 MG TABLET PO SCH (08:19)
[2016-11-12] MEDS: CARVEDILOL 3.125 MG TABLET PO SCH ×2 (08:19→21:37)
[2016-11-12] MEDS: OMEGA 3 ACID ETHYL ESTERS 1 GM CAPSULE PO SCH (08:20)
[2016-11-12] MEDS: ENOXAPARIN 40 MG/0.4 ML SYRINGE SUBCUT SCH (08:22)
--- NOTE | 2016-11-12 10:06 | Pulmonology Progress Note ---
Pulmonary - PN: Subj Interval history: This 66-year-old white male has COPD and tracheomalacia. He came in with an acute exacerbation with pneumonia. He is having difficulty clearing secretions. He is getting Pulmozyme and a cappella respiratory therapy. Also on steroids and antibiotics and bronchodilators. May yet need to have bronchoscopy. Will decide tomorrow after I see him. Exam (Progress Note) - Constitutional Vitals: Period Temp Pulse Resp BP Sys/Aguilar Pulse Ox Last 24 Hr 97.6 F-99.3 F 59-89 16-22 130-155/62-74 91-98 Exam: He is alert oriented vital signs normal. Pupils react to light. Throat is clear. Neck supple no bruits. Chest reveals some rhonchi bilaterally and prolonged expiratory phase. Heart normal rate and rhythm no murmurs. Abdomen soft nontender no masses. Bowel sounds present. Extremities no clubbing cyanosis or edema. Calves nontender. Results - Labs CBC & BMP: 11/11/16 02:51 11/11/16 02:51 Lab Results: I have reviewed the past 24 hour labs Assessment and Plan (1) Tracheomalacia Status: Acute Assessment and plan: This makes it difficult for him to cough and clear secretions. If his sputum production does not improve we will need to bronchoscope him in a couple of days. Current Visit: Yes (2) COPD exacerbation Status: Acute Assessment and plan: He sounds better today. Continue with bronchodilators. Continue with antibiotics and steroids. Current Visit: Yes (3) Left lower lobe pneumonia Status: Acute Assessment and plan: Continue with empiric antibiotics. Follow-up x-ray Monday Current Visit: Yes (4) Tobacco abuse Status: Chronic Assessment and plan: Discussed with him yesterday the need to stop smoking. We will continue to discuss it with him. Current Visit: Yes
--- NOTE | 2016-11-12 11:53 | Cardiology Progress Note ---
Assessment and Plan (1) Atypical chest pain Status: Acute Assessment and plan: Pain is pleuritic in sounds related to pneumonia. No objective evidence of active coronary ischemia currently. Current Visit: Yes (2) COPD exacerbation Status: Acute Current Visit: Yes (3) Left lower lobe pneumonia Status: Acute Current Visit: Yes Cardiology - PN: Subj Interval history: Patient is improving. His pneumonia is slowly resolving. His chest discomfort is atypical and likely noncardiac. Exam (Progress Note) - Constitutional Vitals: Period Temp Pulse Resp BP Sys/Aguilar Pulse Ox Last 24 Hr 97.6 F-99.3 F 59-89 16-22 130-155/62-74 91-98 Exam: General:no acute distress. alert and oriented, mood and affect are normal HEENT: no new lesions, sclerae are clear, mouth and pharynx benign Neck: supple, trachea midline, no JVD noted Lungs: Scattered wheezes are noted much improved from yesterday. No rales or rhonchi are noted. pt comfortable without accesory muscle use to assist with breathing CV: RRR no murmur rub or gallop is noted. Abd: soft and nontender, BSNA, no masses. Ext: no cyanosis, clubbing or edema Neuro: grossly intact without focal neurologic deficit. Result/EKG - Labs CBC & BMP: 11/11/16 02:51 11/11/16 02:51
[2016-11-12] MEDS: ACETAMINOPHEN 500 MG TABLET PO PRN ×2 (12:10→22:24)
[2016-11-12] MEDS: LEVOFLOXACIN INJ 750 MG in PREMIX 1 EACH IV SCH (22:25)
[2016-11-13] MEDS: methylPREDNISolone SOD SUC 40 MG/1 ML VIAL IV SCH ×3 (06:11→21:50)
--- NOTE | 2016-11-13 07:35 | Family Practice Progress Note ---
Family Practice - PN: Subj Interval history: Patient states she is actually improved somewhat and states she is breathing better. He denies any chest pain states he is not coughing up much in way of sputum morning. Exam (Progress Note) - Constitutional Vitals: Period Temp Pulse Resp BP Sys/Aguilar Pulse Ox Last 24 Hr 98 F-99.5 F 56-89 18-22 135-155/65-75 90-99 Exam: Objective a well-developed gentleman is awake alert and able give good history. He is not dyspneic at rest. Cardiovascular: Heart rate regular without murmurs. Respiratory: Patient has minimal expiratory wheezes bilaterally. Abdomen: Abdomen soft and nontender. Results - Labs CBC & BMP: 11/11/16 02:51 11/11/16 02:51 Lab Results: I have reviewed the past 24 hour labs Assessment and Plan (1) COPD exacerbation Status: Acute Assessment and plan: 11/12/2016: We will continue present therapy. 11/13/2016: Patient is certainly improving. Current Visit: Yes
[2016-11-13] MEDS: IPRATROPIUM 500 MCG/2.5 ML NEB RESP TX SCH ×4 (07:48→18:53)
[2016-11-13] MEDS: ALBUTEROL 2.5 MG/3 ML NEB RESP TX SCH ×2 (07:48→18:53)
[2016-11-13] MEDS: DORNASE ALFA 2.5 MG/2.5 ML VIAL RESP TX SCH ×2 (08:01→18:53)
--- NOTE | 2016-11-13 08:31 | EKG Report ---
Stationary ECG Study [facility] Test Date: 11/13/2016 8:31:02 AM Pat Name: KESHA LANGSTON Department: Room: 293 Gender: M Forestry Workers: JUAN MANUEL : 1950 Requested by: Margy Villavicencio Order Number: [id number] Reading MD: DIAMOND BIRD Intervals [place] Rate: 58 P: 74 IA: 167 QRS: 13 QRSD: 110 T: 56 QT: 399 QTc: 395 Interpretive Statements SINUS RHYTHM ANTEROSEPTAL MYOCARDIAL INFARCTION, OF INDETERMINATE AGE INCOMPLETE RIGHT BUNDLE BRANCH BLOCK LEFT ATRIAL ABNORMALITY Electronically Signed On 11-13-16 11:22:34 FINANCIAL LEGAL ASSISTANT by DIAMOND BIRD [email or web address]
[2016-11-13] MEDS: CEFEPIME 1,000 MG in SODIUM CHLORIDE 0.9% 100 ML IV SCH (08:42)
[2016-11-13] MEDS: ENOXAPARIN 40 MG/0.4 ML SYRINGE SUBCUT SCH (08:44)
--- NOTE | 2016-11-13 09:10 | Pulmonology Progress Note ---
Pulmonary - PN: Subj Interval history: This 66-year-old white male has COPD and tracheomalacia. He came in with an acute exacerbation with pneumonia. He is having difficulty clearing secretions. He is getting Pulmozyme and a cappella respiratory therapy. Also on steroids and antibiotics and bronchodilators. May yet need to have bronchoscopy. Will decide tomorrow after I see him. 11/13/2016 patient is feeling a little better and sounds a little better. He had some vomiting early this morning. I think we would do best to continue current medications and hold off on bronchoscopy for now. Exam (Progress Note) - Constitutional Vitals: Period Temp Pulse Resp BP Sys/Aguilar Pulse Ox Last 24 Hr 98 F-99.5 F 56-85 16-22 135-158/65-80 90-99 Exam: He is alert oriented vital signs normal. Pupils react to light. Throat is clear. Neck supple no bruits. Chest reveals mild rhonchi bilaterally and prolonged expiratory phase. Heart normal rate and rhythm no murmurs. Abdomen soft nontender no masses. Bowel sounds present. Extremities no clubbing cyanosis or edema. Calves nontender. Overall his chest sounds a little better. Results - Labs CBC & BMP: 11/11/16 02:51 11/11/16 02:51 Lab Results: I have reviewed the past 24 hour labs Assessment and Plan (1) Tracheomalacia Status: Acute Assessment and plan: This makes it difficult for him to cough and clear secretions. If his sputum production does not improve we will need to bronchoscope him in a couple of days. 11/13/2016 patient is getting some sputum up. Lungs are sounding better. Will not plan bronchoscopy yet. Current Visit: Yes (2) COPD exacerbation Status: Acute Assessment and plan: He sounds better today. Continue with bronchodilators. Continue with antibiotics and steroids. 11/13/2016 lungs sound better. Continuing with bronchodilators and steroids Current Visit: Yes (3) Left lower lobe pneumonia Status: Acute Assessment and plan: Continue with empiric antibiotics. Follow-up x-ray Monday11/13/2016 continuing with antibiotics. Current Visit: Yes (4) Tobacco abuse Status: Chronic Assessment and plan: Discussed with him yesterday the need to stop smoking. We will continue to discuss it with him. Current Visit: Yes
[2016-11-13] MEDS: OMEGA 3 ACID ETHYL ESTERS 1 GM CAPSULE PO SCH (10:07)
[2016-11-13] MEDS: ASPIRIN EC 325 MG TABLET PO SCH (10:07)
[2016-11-13] MEDS: buPROPion 75 MG TABLET PO SCH ×2 (10:07→21:49)
[2016-11-13] MEDS: ROFLUMILAST 500 MCG TABLET PO SCH (10:07)
[2016-11-13] MEDS: MAGNESIUM CHLORIDE 64 MG TABLET PO SCH (10:07)
[2016-11-13] MEDS: CARVEDILOL 3.125 MG TABLET PO SCH ×2 (10:07→21:49)
[2016-11-13] MEDS: MINOXIDIL 2.5 MG TABLET PO SCH ×2 (10:07→21:49)
[2016-11-13] MEDS: LOSARTAN 50 MG TABLET PO SCH (10:07)
[2016-11-13] MEDS: NEBIVOLOL 5 MG TABLET PO SCH (10:08)
[2016-11-13] MEDS: hydroCHLOROthiazide 25 MG TABLET PO SCH (10:08)
[2016-11-13] MEDS: amLODIPine 10 MG TABLET PO SCH (10:08)
[2016-11-13] MEDS: PANTOPRAZOLE 40 MG TABLET PO SCH (10:08)
[2016-11-13] MEDS: FUROSEMIDE 20 MG TABLET PO SCH (10:08)
[2016-11-13] MEDS: DOCUSATE SODIUM 100 MG CAPSULE PO SCH ×2 (10:08→21:54)
--- NOTE | 2016-11-13 10:41 | Cardiology Progress Note ---
Assessment and Plan (1) Atypical chest pain Status: Acute Assessment and plan: Pain is pleuritic in sounds related to pneumonia. No objective evidence of active coronary ischemia currently. 11/13: Please make patient an appointment to Dr. Monique back after discharge in roughly 2 weeks Current Visit: Yes (2) COPD exacerbation Status: Acute Current Visit: Yes (3) Left lower lobe pneumonia Status: Acute Current Visit: Yes Cardiology - PN: Subj Interval history: Patient continues cardiac stable. We will sign off. Reconsult as needed. He will need to follow-up with Dr. Monique on a as needed basis. Exam (Progress Note) - Constitutional Vitals: Period Temp Pulse Resp BP Sys/Aguilar Pulse Ox Last 24 Hr 98 F-99.5 F 56-85 16-22 135-158/65-80 90-99 Exam: General:no acute distress. alert and oriented, mood and affect are normal HEENT: no new lesions, sclerae are clear, mouth and pharynx benign Neck: supple, trachea midline, no JVD noted Lungs: Scattered wheezes are noted much improved from yesterday. No rales or rhonchi are noted. pt comfortable without accesory muscle use to assist with breathing CV: RRR no murmur rub or gallop is noted. Abd: soft and nontender, BSNA, no masses. Ext: no cyanosis, clubbing or edema Neuro: grossly intact without focal neurologic deficit. Result/EKG - Labs CBC & BMP: 11/11/16 02:51 11/11/16 02:51
[2016-11-13] MEDS: SODIUM CHLORIDE 0.9% 1,000 ML IV SCH (12:19)
[2016-11-13] MEDS: LEVOFLOXACIN INJ 750 MG in PREMIX 1 EACH IV SCH (21:53)
[2016-11-14] MEDS: CEFEPIME 1,000 MG in SODIUM CHLORIDE 0.9% 100 ML IV SCH ×2 (02:33→08:40)
[2016-11-14] MEDS: ACETAMINOPHEN 500 MG TABLET PO PRN (04:29)
[2016-11-14] MEDS: SODIUM CHLORIDE 0.9% 1,000 ML IV SCH ×2 (05:22→09:40)
[2016-11-14] MEDS: methylPREDNISolone SOD SUC 40 MG/1 ML VIAL IV SCH ×3 (07:05→22:47)
[2016-11-14] MEDS: ALBUTEROL 2.5 MG/3 ML NEB RESP TX SCH ×2 (07:27→20:03)
[2016-11-14] MEDS: IPRATROPIUM 500 MCG/2.5 ML NEB RESP TX SCH ×4 (07:27→20:03)
[2016-11-14] MEDS: DORNASE ALFA 2.5 MG/2.5 ML VIAL RESP TX SCH ×2 (07:37→20:03)
[2016-11-14] MEDS: FUROSEMIDE 20 MG TABLET PO SCH (08:36)
[2016-11-14] MEDS: OMEGA 3 ACID ETHYL ESTERS 1 GM CAPSULE PO SCH (08:37)
[2016-11-14] MEDS: LOSARTAN 50 MG TABLET PO SCH (08:37)
[2016-11-14] MEDS: PANTOPRAZOLE 40 MG TABLET PO SCH (08:37)
[2016-11-14] MEDS: ROFLUMILAST 500 MCG TABLET PO SCH (08:37)
[2016-11-14] MEDS: buPROPion 75 MG TABLET PO SCH ×2 (08:37→22:46)
[2016-11-14] MEDS: ASPIRIN EC 325 MG TABLET PO SCH (08:37)
[2016-11-14] MEDS: MINOXIDIL 2.5 MG TABLET PO SCH ×2 (08:37→22:46)
[2016-11-14] MEDS: amLODIPine 10 MG TABLET PO SCH (08:37)
[2016-11-14] MEDS: CARVEDILOL 3.125 MG TABLET PO SCH ×2 (08:37→22:46)
[2016-11-14] MEDS: MAGNESIUM CHLORIDE 64 MG TABLET PO SCH (08:37)
[2016-11-14] MEDS: NEBIVOLOL 5 MG TABLET PO SCH (08:37)
[2016-11-14] MEDS: hydroCHLOROthiazide 25 MG TABLET PO SCH (08:37)
[2016-11-14] MEDS: DOCUSATE SODIUM 100 MG CAPSULE PO SCH ×2 (08:37→22:49)
[2016-11-14] MEDS: ENOXAPARIN 40 MG/0.4 ML SYRINGE SUBCUT SCH (08:40)
--- NOTE | 2016-11-14 09:09 | Pulmonology Progress Note ---
Pulmonary - PN: Subj Interval history: This 66-year-old white male has COPD and tracheomalacia. He came in with an acute exacerbation with pneumonia. He is having difficulty clearing secretions. He is getting Pulmozyme and a cappella respiratory therapy. Also on steroids and antibiotics and bronchodilators. May yet need to have bronchoscopy. Will decide tomorrow after I see him. 11/13/2016 patient is feeling a little better and sounds a little better. He had some vomiting early this morning. I think we would do best to continue current medications and hold off on bronchoscopy for now. 11/14/2016 patient is feeling better and getting some sputum up now. Will not require bronchoscopy. However he does need a few more days of IV antibiotics due to his tracheomalacia. Exam (Progress Note) - Constitutional Vitals: Period Temp Pulse Resp BP Sys/Aguilar Pulse Ox Last 24 Hr 98 F-98.6 F 52-68 16-22 132-159/64-78 92-99 Exam: He is alert oriented vital signs normal. Pupils react to light. Throat is clear. Neck supple no bruits. Chest reveals minimal rhonchi bilaterally and prolonged expiratory phase. Heart normal rate and rhythm no murmurs. Abdomen soft nontender no masses. Bowel sounds present. Extremities no clubbing cyanosis or edema. Calves nontender. Results - Labs CBC & BMP: 11/11/16 02:51 11/11/16 02:51 Lab Results: I have reviewed the past 24 hour labs Assessment and Plan (1) Tracheomalacia Status: Acute Assessment and plan: This makes it difficult for him to cough and clear secretions. If his sputum production does not improve we will need to bronchoscope him in a couple of days. 11/13/2016 patient is getting some sputum up. Lungs are sounding better. Will not plan bronchoscopy yet. 11/14/2016 patient is able to get sputum out now. Will not need bronchoscopy. However due to the tracheomalacia and the length of time it takes to clear his airways, he will need IV antibiotics for a few more days. Current Visit: Yes (2) COPD exacerbation Status: Acute Assessment and plan: He sounds better today. Continue with bronchodilators. Continue with antibiotics and steroids. 11/13/2016 lungs sound better. Continuing with bronchodilators and steroids 11/14/2016 he does sound better. Taper steroids a little per Current Visit: Yes (3) Left lower lobe pneumonia Status: Acute Assessment and plan: Continue with empiric antibiotics. Follow-up x-ray Monday11/13/2016 continuing with antibiotics. 11/14/2016 repeat chest x-ray tomorrow. Current Visit: Yes (4) Tobacco abuse Status: Chronic Assessment and plan: Discussed with him yesterday the need to stop smoking. We will continue to discuss it with him. 11/14/2016 continuing to discuss on a daily basis Current Visit: Yes
--- NOTE | 2016-11-14 14:45 | Cardiology Progress Note ---
Cardiology - PN: Subj Interval history: Cardiology note 66-year-old man with left lower lobe pneumonia and tracheomalacia. No temperature. Appetite improving. Still has some pleuritic pain especially when coughing. Telemetry shows steady sinus rhythm. O2 sat 99 on 2 L cannula. Decreased breath sounds rhonchi in the left side no wheezing Regular rhythm no murmur or gallop. No chest wall tenderness to palpation. Abdomen soft benign. No leg edema. Recent echo showed ejection fraction of 55-60% with no wall motion abnormality, mild LVH, mildly dilated right ventricle, dilated left atrium, aortic sclerosis , moderate TR PA pressure 45 with no effusion Impression Tracheomalacia Left lower lobe pneumonia Status post bronchoscopy November 13 Active smoker No history of CAD Pleuritic chest pain secondary to inflammation Plan Pulmonary toilet, nebs steroids antibiotics Monitor Follow-up with Dr. Monique on discharge Exam (Progress Note) - Constitutional Vitals: Period Temp Pulse Resp BP Sys/Aguilar Pulse Ox Last 24 Hr 98.0 F-98.6 F 52-68 16-22 132-143/63-71 91-99 Result/EKG - Labs CBC & BMP: 11/11/16 02:51 11/11/16 02:51
[2016-11-14] MEDS: LEVOFLOXACIN INJ 750 MG in PREMIX 1 EACH IV SCH (22:46)
[2016-11-15] MEDS: CEFEPIME 1,000 MG in SODIUM CHLORIDE 0.9% 100 ML IV SCH ×2 (01:16→09:11)
[2016-11-15] MEDS: SODIUM CHLORIDE 0.9% 1,000 ML IV SCH ×2 (01:17→14:42)
--- NOTE | 2016-11-15 07:47 | XRay Report ---
Exam: Chest 2 views Date: November 15, 2016 at 7:07 AM Comparison: Chest 2 views November 11, 2016 Reason: Tracheomalacia, left lower lobe pneumonia Findings: The cardiac silhouette is normal in size. There are minimal opacities within the left lower lung zone. This could represent atelectasis, scarring and/or pneumonia. No pneumothorax is identified, but there may be minimal left pleural fluid. The osseous structures appear stable with a mild remote compression fracture near the thoracolumbar junction. A fracture of the right humerus was recently seen but is not included in the [id number]. Impression: There has been no significant change. PROCEDURE INTERPRETED AT [facility] DEPARTMENT OF RADIOLOGY Final Report Signed by: Dr. Pradeep Merchant
[2016-11-15] MEDS: IPRATROPIUM 500 MCG/2.5 ML NEB RESP TX SCH ×4 (08:16→19:14)
[2016-11-15] MEDS: ALBUTEROL 2.5 MG/3 ML NEB RESP TX SCH ×2 (08:16→19:14)
--- NOTE | 2016-11-15 08:40 | Pulmonology Progress Note ---
Pulmonary - PN: Subj Interval history: This 66-year-old white male has COPD and tracheomalacia. He came in with an acute exacerbation with pneumonia. He is having difficulty clearing secretions. He is getting Pulmozyme and a cappella respiratory therapy. Also on steroids and antibiotics and bronchodilators. May yet need to have bronchoscopy. Will decide tomorrow after I see him. 11/13/2016 patient is feeling a little better and sounds a little better. He had some vomiting early this morning. I think we would do best to continue current medications and hold off on bronchoscopy for now. 11/14/2016 patient is feeling better and getting some sputum up now. Will not require bronchoscopy. However he does need a few more days of IV antibiotics due to his tracheomalacia. 11/15/2016 patient is a little better. Coughing up some phlegm. Needs a few more days of IV medicines for now. Exam (Progress Note) - Constitutional Vitals: Period Temp Pulse Resp BP Sys/Aguilar Pulse Ox Last 24 Hr 97.0 F-99.0 F 51-61 16-20 126-163/47-74 91-100 Exam: He is alert oriented vital signs normal. Pupils react to light. Throat is clear. Neck supple no bruits. Chest reveals minimal rhonchi bilaterally and prolonged expiratory phase. Heart normal rate and rhythm no murmurs. Abdomen soft nontender no masses. Bowel sounds present. Extremities no clubbing cyanosis or edema. Calves nontender. Little change from yesterday. Results - Labs CBC & BMP: 11/11/16 02:51 11/11/16 02:51 Lab Results: I have reviewed the past 24 hour labs - Diagnostic Findings Procedure: Chest x-ray: image reviewed by me (Hyperinflation, tracheal shadow narrowed, left basilar infiltrate a little better.) Assessment and Plan (1) Tracheomalacia Status: Acute Assessment and plan: This makes it difficult for him to cough and clear secretions. If his sputum production does not improve we will need to bronchoscope him in a couple of days. 11/13/2016 patient is getting some sputum up. Lungs are sounding better. Will not plan bronchoscopy yet. 11/14/2016 patient is able to get sputum out now. Will not need bronchoscopy. However due to the tracheomalacia and the length of time it takes to clear his airways, he will need IV antibiotics for a few more days. 11/15/2016 continuing with bronchodilators chest PT steroids antibiotics. Current Visit: Yes (2) COPD exacerbation Status: Acute Assessment and plan: He sounds better today. Continue with bronchodilators. Continue with antibiotics and steroids. 11/13/2016 lungs sound better. Continuing with bronchodilators and steroids 11/14/2016 he does sound better. Taper steroids a little. 11/15/2016 we will not taper steroids further now. Current Visit: Yes (3) Left lower lobe pneumonia Status: Acute Assessment and plan: Continue with empiric antibiotics. Follow-up x-ray Monday11/13/2016 continuing with antibiotics. 11/14/2016 repeat chest x-ray tomorrow. 11/15/2016 chest x-ray is a little bit better. Current Visit: Yes (4) Tobacco abuse Status: Chronic Assessment and plan: Discussed with him yesterday the need to stop smoking. We will continue to discuss it with him. 11/14/2016 continuing to discuss on a daily basis Current Visit: Yes
[2016-11-15] MEDS: methylPREDNISolone SOD SUC 40 MG/1 ML VIAL IV SCH ×2 (09:08→22:12)
[2016-11-15] MEDS: ASPIRIN EC 325 MG TABLET PO SCH (09:09)
[2016-11-15] MEDS: DOCUSATE SODIUM 100 MG CAPSULE PO SCH ×3 (09:09→22:20)
[2016-11-15] MEDS: MINOXIDIL 2.5 MG TABLET PO SCH ×2 (09:09→22:13)
[2016-11-15] MEDS: ROFLUMILAST 500 MCG TABLET PO SCH (09:09)
[2016-11-15] MEDS: OMEGA 3 ACID ETHYL ESTERS 1 GM CAPSULE PO SCH (09:09)
[2016-11-15] MEDS: LOSARTAN 50 MG TABLET PO SCH (09:09)
[2016-11-15] MEDS: hydroCHLOROthiazide 25 MG TABLET PO SCH (09:10)
[2016-11-15] MEDS: PANTOPRAZOLE 40 MG TABLET PO SCH (09:10)
[2016-11-15] MEDS: CARVEDILOL 3.125 MG TABLET PO SCH ×2 (09:10→22:13)
[2016-11-15] MEDS: NEBIVOLOL 5 MG TABLET PO SCH (09:10)
[2016-11-15] MEDS: amLODIPine 10 MG TABLET PO SCH (09:10)
[2016-11-15] MEDS: buPROPion 75 MG TABLET PO SCH ×2 (09:10→22:13)
[2016-11-15] MEDS: MAGNESIUM CHLORIDE 64 MG TABLET PO SCH (09:10)
[2016-11-15] MEDS: ENOXAPARIN 40 MG/0.4 ML SYRINGE SUBCUT SCH (09:11)
[2016-11-15] MEDS: FUROSEMIDE 20 MG TABLET PO SCH (09:11)
--- NOTE | 2016-11-15 11:53 | Cardiology Progress Note ---
<Margy Villavicencio E - Last Filed: 11/15/16 11:47> Assessment and Plan - Time spent with patient Time spent with patient: Less than 30 minutes (1) Atypical chest pain Status: Acute Assessment and plan: Pain is pleuritic in sounds related to pneumonia. No objective evidence of active coronary ischemia currently. He will need to follow up with Dr. Monique in 2 weeks following discharge. Current Visit: Yes (2) Left lower lobe pneumonia Status: Acute Assessment and plan: Pulmonology is following. He is on breathing treatments, IV steroids, and IV antibiotics. Current Visit: Yes (3) Fever Status: Acute Assessment and plan: Tylenol PRN. He is receiving antibiotics for his pneumonia. Currently running low grade temperature around 99 degrees. Current Visit: Yes (4) COPD exacerbation Status: Acute Assessment and plan: Pulmonology following. He is receiving IV steroids and breathing treatments. Current Visit: Yes (5) Coronary artery disease Status: Chronic Assessment and plan: S/P LHC w/ stent placement in September 2012. Will follow up with Dr. Monique following discharge. Current Visit: Yes (6) Status post coronary artery stent placement Status: Chronic Assessment and plan: Done 09/2012. Current Visit: Yes (7) Hypertension Status: Chronic Assessment and plan: Continue current plan of care. Will adjust as needed. Current Visit: Yes (8) GERD (gastroesophageal reflux disease) Status: Chronic Assessment and plan: Continue PPI. Current Visit: Yes (9) Tobacco abuse Status: Chronic Assessment and plan: His approximately 3-4 months ago and he has been a bit depressed. This does not help his motivation to quit smoking. Current Visit: Yes Cardiology - PN: Subj Interval history: 66-year-old man with left lower lobe pneumonia and tracheomalacia. We were consulted for atypical chest pain. Pain is pleuritic in nature, likely related to pneumonia. No objective evidence of active coronary ischemia currently. Temperature 99 degrees Fahrenheit today. Appetite improving. Still has some pleuritic pain especially when coughing. Telemetry shows steady sinus rhythm. Oxygen saturation 96% on room air. Denies shortness of breath, palpitations. Recent echo showed ejection fraction of 55-60% with no wall motion abnormality, mild LVH, mildly dilated right ventricle, dilated left atrium, aortic sclerosis , moderate TR PA pressure 45 with no effusion. No lab data today. CBC and BMP ordered for in the morning. Impression: Tracheomalacia Left lower lobe pneumonia Status post bronchoscopy November 13 Active smoker No history of CAD Pleuritic chest pain secondary to inflammation Plan: Follow up with Dr. Monique 2 weeks following discharge. Will continue to monitor. Pulmonology following. He will continue with a few more days of IV antibiotics. Continue steroids, breathing treatments. Exam (Progress Note) - Constitutional Vitals: Period Temp Pulse Resp BP Sys/Aguilar Pulse Ox Last 24 Hr 97.0 F-99.0 F 51-61 16-20 126-163/47-74 93-100 Exam: General: Present: Appears Well, No Apparent Distress HEENT: Present: Normocephaly, Mucus Membranes Moist Neck: Present: Supple Neck, Midline Trachea, No Masses, No Bruit Cardiac: Present: Reg Rate and Rhythm, No Murmur Lungs: Present: No Wheezes, Minimal Rhonchi (more prominent posteriorly and in the lower bases), prolonged expiratory phase Neuro: Present: Grossly Intact. Absent: Resting Tremor, Essential Tremor Abdomen: Present: Soft, Active Bowel Sounds, No Masses, Non-Tender Skin: Present: Clear. Absent: Rash Musculoskeletal: Present: No Fluid Collection, No Pain, Normal Range of Motion Extremities: Present: Normal Gait, No Clubbing, No Cyanosis, Normal Upper Extr. Pulses, Normal Lower Extr. Pulses, +1 Edema (pitting to BLE and left upper extremity) Result/EKG - Labs CBC & BMP: 11/11/16 02:51 11/11/16 02:51 Lab Results: I have reviewed the past 24 hour labs - EKG EKG results: interpreted by me, sinus rhythm <Cipriano Santos - Last Filed: 11/15/16 17:59> Cardiology - PN: Subj Interval history: Cardiology addendum. Patient examined, chart reviewed and discussed with nurse Margy Villavicencio NP. Still has sputum production but better air movement. No pleuritic pain last night. No temperature. Telemetry remains benign. Continue IV antibiotics Exam (Progress Note) - Constitutional Vitals: Period Temp Pulse Resp BP Sys/Aguilar Pulse Ox Last 24 Hr 98 F-99.0 F 51-97 18-20 126-163/47-78 94-100 Result/EKG - Labs CBC & BMP: 11/11/16 02:51 11/11/16 02:51
--- NOTE | 2016-11-15 18:31 | Family Practice Progress Note ---
Family Practice - PN: Subj Interval history: Patient seen today. Still having a little bit of wheezing but no respiratory distress is eating his food well. Appreciate pulmonary and cardiac involvement. Continuing antibiotics at this time. Exam (Progress Note) - Constitutional Vitals: Period Temp Pulse Resp BP Sys/Aguilar Pulse Ox Last 24 Hr 98 F-99.0 F 51-97 18-20 126-163/47-78 94-100 Exam: Generally stable no overall acute distress is alert and oriented HEENT neck is supple trachea midline Lungs some mild wheezing no acute respiratory distress at this time perhaps a few loose scattered rhonchi Abdomen soft nondistended Extremities no clubbing cyanosis or edema Results - Labs CBC & BMP: 11/11/16 02:51 11/11/16 02:51 Assessment and Plan (1) Atypical chest pain Status: Acute Assessment and plan: 11/11/2016: Appreciate cardiology services on this case I did agree that this is probably not cardiac pain I think he has got a pneumonia at this time. Will follow along. 11/14/2016 no fadumo chest pain at present. I do agree with cardiology that this is probably more respiratory in nature Current Visit: Yes (2) COPD exacerbation Status: Acute Assessment and plan: 11/11/2016: Currently given patient albuterol Atrovent nebulizers. Pulmonary is seen him we will consider steroids if not already only on. Patient also so gets Daliresp and we will continue this. Current Visit: Yes (3) Fever Status: Acute Assessment and plan: 11/11/2016: Antibiotics are in place at this time, including cefepime and Levaquin. 11/14/2016: Continuing antibiotics with pulmonary direction Current Visit: Yes (4) Left lower lobe pneumonia Status: Acute Assessment and plan: 11/11/[address] were given breathing treatments and will continue this for now appreciate pulmonary Current Visit: Yes (5) Coronary artery disease Status: Chronic Assessment and plan: 11/11/2016.: I do not believe this is cardiac disease. Appreciate cardiology services looking patient. Will adjust medications accordingly Current Visit: Yes (6) Hypertension Status: Chronic Assessment and plan: 11/11/2016: Blood pressure is under good control Current Visit: Yes
--- NOTE | 2016-11-15 18:34 | Family Practice Progress Note ---
Family Practice - PN: Subj Interval history: Patient seen this morning is doing a little better but still wheezing some. No overall changes otherwise. Patient is able to eat adequately. Weight is stable. Agree with the need to continue IV antibiotics for day or 2 more Exam (Progress Note) - Constitutional Vitals: Period Temp Pulse Resp BP Sys/Aguilar Pulse Ox Last 24 Hr 98 F-99.0 F 51-97 18-20 126-163/47-78 94-100 Exam: Generally stable no overall acute distress is alert and oriented HEENT neck is supple trachea midline Lungs some mild wheezing no acute respiratory distress. Does still have moments of shortness of breath. No fadumo rhonchi Abdomen soft nondistended Extremities no clubbing cyanosis or edema Results - Labs CBC & BMP: 11/11/16 02:51 11/11/16 02:51 Assessment and Plan (1) Atypical chest pain Status: Acute Assessment and plan: 11/11/2016: Appreciate cardiology services on this case I did agree that this is probably not cardiac pain I think he has got a pneumonia at this time. Will follow along. 11/14/2016 no fadumo chest pain at present. I do agree with cardiology that this is probably more respiratory in nature 3 03/17/2020 continues to be without chest pain. Current Visit: Yes (2) COPD exacerbation Status: Acute Assessment and plan: 11/11/2016: Currently given patient albuterol Atrovent nebulizers. Pulmonary is seen him we will consider steroids if not already only on. Patient also so gets Daliresp and we will continue this. Current Visit: Yes (3) Fever Status: Resolved Assessment and plan: 11/11/2016: Antibiotics are in place at this time, including cefepime and Levaquin. 11/14/2016: Continuing antibiotics with pulmonary direction Current Visit: Yes (4) Left lower lobe pneumonia Status: Acute Assessment and plan: 11/11/[address] were given breathing treatments and will continue this for now appreciate pulmonary 3 03/17/2020: Remains on IV antibiotics for Current Visit: Yes (5) Coronary artery disease Status: Chronic Assessment and plan: 11/11/2016.: I do not believe this is cardiac disease. Appreciate cardiology services looking patient. Will adjust medications accordingly Current Visit: Yes (6) Hypertension Status: Chronic Assessment and plan: 11/11/2016: Blood pressure is under good control Current Visit: Yes
[2016-11-15] MEDS: LEVOFLOXACIN INJ 750 MG in PREMIX 1 EACH IV SCH (22:13)
[2016-11-16] MEDS: CEFEPIME 1,000 MG in SODIUM CHLORIDE 0.9% 100 ML IV SCH (01:09)
[2016-11-16] MEDS: SODIUM CHLORIDE 0.9% 1,000 ML IV SCH ×2 (02:25→19:48)
[2016-11-16 04:37] LABS: Basophils % 0.1 % (0.0-0.8); Hematocrit 40.1 VOL% (42.0-52.0); Hemoglobin 13.6 GM/DL (14.0-18.0); Immature Granulocytes % 0.7 %; Immature Granulocytes Absolute 0.08 #; Lymphocytes # 1.3 10*3/uL (1.4-4.0); Lymphocytes % 10.3 % (21.2-54.2); Mean Corpuscular HGB Conc 33.9 GM/DL (32-36); Mean Corpuscular Hemoglobin 32 PG (27-34); Mean Corpuscular Volume 92.8 FL (87-102); Mean Platelet Volume 10.2 FL (9.6-12.0); Monocytes # 0.7 10*3/uL (0.11-0.8); Monocytes % 5.4 % (1.7-12.7); Neutrophils # 10.3 10*3/uL (1.4-7.4); Neutrophils % 83.5 % (38.7-73.9); Platelet Count 271 T/CUMM (130-400); Red Blood Count 4.32 MC/CUMM (3.8-5.5); Red Cell Distribution Width 11.2 % (9.3-17.3); White Blood Count 12.3 T/CUMM (4-12)
[2016-11-16 05:10] LABS: Calcium 8.6 MG/DL (8.5-10.1); Osmolality,Calculated 270.2 MOS/KG (273-304); Potassium 4.3 MMOL/L (3.5-5.1)
[2016-11-16] MEDS: ALBUTEROL 2.5 MG/3 ML NEB RESP TX SCH ×2 (08:16→19:02)
[2016-11-16] MEDS: IPRATROPIUM 500 MCG/2.5 ML NEB RESP TX SCH ×4 (08:16→19:02)
[2016-11-16] MEDS: OMEGA 3 ACID ETHYL ESTERS 1 GM CAPSULE PO SCH (08:41)
[2016-11-16] MEDS: NEBIVOLOL 5 MG TABLET PO SCH (08:41)
--- NOTE | 2016-11-16 08:41 | Pulmonology Progress Note ---
Pulmonary - PN: Subj Interval history: This 66-year-old white male has COPD and tracheomalacia. He came in with an acute exacerbation with pneumonia. He is having difficulty clearing secretions. He is getting Pulmozyme and a cappella respiratory therapy. Also on steroids and antibiotics and bronchodilators. May yet need to have bronchoscopy. Will decide tomorrow after I see him. 11/13/2016 patient is feeling a little better and sounds a little better. He had some vomiting early this morning. I think we would do best to continue current medications and hold off on bronchoscopy for now. 11/14/2016 patient is feeling better and getting some sputum up now. Will not require bronchoscopy. However he does need a few more days of IV antibiotics due to his tracheomalacia. 11/15/2016 patient is a little better. Coughing up some phlegm. Needs a few more days of IV medicines for now. 11/16/2016 patient is having some diarrhea. I will hold his antibiotics for the next day or 2. If the diarrhea resolves we will keep him off. He is a little better as far as his lungs are concerned. He did have 1 stool negative for C. difficile. Exam (Progress Note) - Constitutional Vitals: Period Temp Pulse Resp BP Sys/Aguilar Pulse Ox Last 24 Hr 97.2 F-99.0 F 51-97 16-20 124-149/67-78 92-99 Exam: He is alert oriented vital signs normal. Pupils react to light. Throat is clear. Neck supple no bruits. Chest reveals minimal rhonchi bilaterally and prolonged expiratory phase. Heart normal rate and rhythm no murmurs. Abdomen soft nontender no masses. Bowel sounds present. Extremities no clubbing cyanosis or edema. Calves nontender. Results - Labs CBC & BMP: 11/16/16 04:23 11/16/16 04:23 Lab Results: I have reviewed the past 24 hour labs Assessment and Plan (1) Tracheomalacia Status: Acute Assessment and plan: This makes it difficult for him to cough and clear secretions. If his sputum production does not improve we will need to bronchoscope him in a couple of days. 11/13/2016 patient is getting some sputum up. Lungs are sounding better. Will not plan bronchoscopy yet. 11/14/2016 patient is able to get sputum out now. Will not need bronchoscopy. However due to the tracheomalacia and the length of time it takes to clear his airways, he will need IV antibiotics for a few more days. 11/15/2016 continuing with bronchodilators chest PT steroids antibiotics. 11/16/2016 we were giving a longer course of antibiotics because of the tracheomalacia. However with his diarrhea we do need to stop them and see how he does. He may have had enough already Current Visit: Yes (2) COPD exacerbation Status: Acute Assessment and plan: He sounds better today. Continue with bronchodilators. Continue with antibiotics and steroids. 11/13/2016 lungs sound better. Continuing with bronchodilators and steroids 11/14/2016 he does sound better. Taper steroids a little. 11/15/2016 we will not taper steroids further now. 11/16/2016 will taper steroids a little further today too. Current Visit: Yes (3) Left lower lobe pneumonia Status: Acute Assessment and plan: Continue with empiric antibiotics. Follow-up x-ray Monday11/13/2016 continuing with antibiotics. 11/14/2016 repeat chest x-ray tomorrow. 11/15/2016 chest x-ray is a little bit better. 11/16/2016 clinically improved Current Visit: Yes (4) Tobacco abuse Status: Chronic Assessment and plan: Discussed with him yesterday the need to stop smoking. We will continue to discuss it with him. 11/14/2016 continuing to discuss on a daily basis Current Visit: Yes
[2016-11-16] MEDS: LOSARTAN 50 MG TABLET PO SCH (08:42)
[2016-11-16] MEDS: amLODIPine 10 MG TABLET PO SCH (08:42)
[2016-11-16] MEDS: ROFLUMILAST 500 MCG TABLET PO SCH (08:43)
[2016-11-16] MEDS: hydroCHLOROthiazide 25 MG TABLET PO SCH (08:43)
[2016-11-16] MEDS: FUROSEMIDE 20 MG TABLET PO SCH (08:44)
[2016-11-16] MEDS: buPROPion 75 MG TABLET PO SCH ×2 (08:45→20:29)
[2016-11-16] MEDS: ASPIRIN EC 325 MG TABLET PO SCH (08:46)
[2016-11-16] MEDS: MAGNESIUM CHLORIDE 64 MG TABLET PO SCH (08:46)
[2016-11-16] MEDS: ENOXAPARIN 40 MG/0.4 ML SYRINGE SUBCUT SCH (08:46)
[2016-11-16] MEDS ORDERED: LOPERAMIDE 2 MG CAPSULE PO PRN (08:54)
[2016-11-16] MEDS: PANTOPRAZOLE 40 MG TABLET PO SCH (09:17)
[2016-11-16] MEDS: DOCUSATE SODIUM 100 MG CAPSULE PO SCH ×2 (09:20→20:07)
[2016-11-16] MEDS: CARVEDILOL 3.125 MG TABLET PO SCH ×2 (09:20→20:29)
[2016-11-16] MEDS: DESITIN 4OZ/NYSTATIN 15 GRAM MIXTURE PASTE TOP SCH ×2 (09:20→20:30)
[2016-11-16] MEDS: MINOXIDIL 2.5 MG TABLET PO SCH ×2 (09:20→20:29)
--- NOTE | 2016-11-16 09:21 | Family Practice Progress Note ---
Family Practice - PN: Subj Interval history: Patient seen this morning doing some better with regards to breathing. As noted in the pulmonary note he is having some diarrhea. A C. difficile study was negative. He requests something for the diarrhea and I will give him some low-dose Imodium for consistent loose stools. I did tell him to use it judiciously. He has not had any worsening of shortness of breath is able to get up and walk without difficulty at this time. Agree with holding antibiotics and appreciate pulmonary assistance on this case. I will go ahead and start him on some Bacid which is a probiotic Exam (Progress Note) - Constitutional Vitals: Period Temp Pulse Resp BP Sys/Aguilar Pulse Ox Last 24 Hr 97.2 F-99.0 F 51-97 16-20 124-149/67-78 92-99 Exam: Physical exam is grossly unchanged. He does have some mild mild swelling in his upper arms but the right arm is mainly swollen glands previous fracture Results - Labs CBC & BMP: 11/16/16 04:23 11/16/16 04:23 Assessment and Plan (1) Atypical chest pain Status: Acute Assessment and plan: 11/11/2016: Appreciate cardiology services on this case I did agree that this is probably not cardiac pain I think he has got a pneumonia at this time. Will follow along. 11/14/2016 no fadumo chest pain at present. I do agree with cardiology that this is probably more respiratory in nature 3 03/17/2020 continues to be without chest pain. Current Visit: Yes (2) COPD exacerbation Status: Acute Assessment and plan: 11/11/2016: Currently given patient albuterol Atrovent nebulizers. Pulmonary is seen him we will consider steroids if not already only on. Patient also so gets Daliresp and we will continue this. 11/16/2016: Currently improved. We are going to continue current regimen of steroids and hold antibiotics from Current Visit: Yes (3) Fever Status: Resolved Assessment and plan: 11/11/2016: Antibiotics are in place at this time, including cefepime and Levaquin. 11/14/2016: Continuing antibiotics with pulmonary direction Current Visit: Yes (4) Left lower lobe pneumonia Status: Acute Assessment and plan: 11/11/[address] were given breathing treatments and will continue this for now appreciate pulmonary 3 03/17/2020: Remains on IV antibiotics for 11/16/2016: We are holding antibiotics for now. The patient's white count down to 12 and is doing much better no coughing. Current Visit: Yes (5) Coronary artery disease Status: Chronic Assessment and plan: 11/11/2016.: I do not believe this is cardiac disease. Appreciate cardiology services looking patient. Will adjust medications accordingly Current Visit: Yes (6) Hypertension Status: Chronic Assessment and plan: 11/11/2016: Blood pressure is under good control Current Visit: Yes
[2016-11-16] MEDS: LACTOBACILLUS ACIDOPHILUS/BULGARICUS CAPLET PO SCH (09:28)
--- NOTE | 2016-11-16 18:42 | Cardiology Progress Note ---
Lois Barba April RN, am scribing for, and in the presence of, Cristo Thompson MD 18:41. Assessment and Plan (1) Atypical chest pain Status: Acute Assessment and plan: This is resolved and certainly is noncardiac. No further evaluation is needed and we will sign off. Current Visit: Yes (2) Left lower lobe pneumonia Status: Acute Assessment and plan: Pulmonary is following. Current Visit: Yes (3) Coronary artery disease Status: Chronic Assessment and plan: He had stent placed to proximal right coronary artery in September 2012. This is clinically stable not having any angina symptoms. Current Visit: Yes (4) Hypertension Status: Chronic Assessment and plan: At present this is fairly stable. Current Visit: Yes (5) Tobacco abuse Status: Chronic Current Visit: Yes Cardiology - PN: Subj Interval history: Mr. Cruz is routinely followed by Dr. hanley. He has a history of athero- sclerotic heart disease status post stenting and angioplasty, prior AR, COPD, hypertension, GERD, arthritis, and tobacco abuse. He is being treated for left lower lobe pneumonia. We were asked to see the patient for atypical chest pain , which appears to be pleuritic in nature likely related to his pneumonia. Today he is in no acute distress, oxygen not in use. He denies chest pain, shortness of breath, palpitations, or dizziness. He reports he has had some diarrhea, but this is improved. Still has been negative for C. difficile. Cardiac-lou he is stable. He is having no symptoms pathology. I do not think any further cardiac evaluation is needed and we will sign off at this time. Please call us if we can be from the service. Exam (Progress Note) - Constitutional Vitals: Period Temp Pulse Resp BP Sys/Aguilar Pulse Ox Last 24 Hr 97.2 F-99.0 F 51-97 16-20 124-149/67-78 92-99 General appearance: normal weight, no acute distress - Head Head exam: Absent: abrasion, hematoma - Eye Eye exam: Absent: periorbital swelling, laceration to eyelids - Neck Neck exam: Absent: tenderness - Respiratory Respiratory exam: Present: rhonchi. Absent: accessory muscle use, chest wall tenderness, wheezes - Cardiovascular Cardiovascular exam: Present: bradycardia, regular rate and rhythm - GI/Abdominal GI/Abdominal exam: Present: normal bowel sounds, soft. Absent: distended, tenderness - Extremities Exam Extremities exam: Present: edema (Trace to bilateral lower extremities) - Neurological Exam Neurological exam: Present: alert, oriented X3 - Psychiatric Psychiatric exam: Present: normal affect, normal mood - Skin Skin exam: Present: warm, dry Result/EKG - Labs CBC & BMP: 11/16/16 04:23 11/16/16 04:23 Lab Results: I have reviewed the past 24 hour labs Labs: Laboratory Results - last 24 hr 11/16/16 11/16/16 04:23 04:23 WBC 12.3 H RBC 4.32 Hgb 13.6 L Hct 40.1 L MCV 92.8 MCH 32 MCHC 33.9 RDW 11.2 Plt Count 271 MPV 10.2 Neut % (Auto) 83.5 H Lymph % (Auto) 10.3 L [place] % (Auto) 5.4 Eos % (Auto) 0.0 Baso % (Auto) 0.1 Neut # (Auto) 10.3 H Lymph # (Auto) 1.3 L [place] # (Auto) 0.7 Eos # (Auto) 0.0 Baso # (Auto) 0.0 Immature Gran % 0.7 Nucleated RBC % 0.0 Immature Gran # 0.08 Nucleated RBCs # 0.00 Sodium 134 L Potassium 4.3 Chloride 97 L Carbon Dioxide 26 Anion Gap 15.3 H BUN 22 H Creatinine 0.60 L GFR Calculation 124 BUN/Creatinine Ratio 36.00 H Glucose 106 Calculated Osmolality 270.2 L Calcium 8.6 - EKG EKG results: interpreted by me EKG shows: bradycardia, sinus rhythm I, Cristo Thompson MD, personally performed the services described in this documentation, ascribed by Isadora Abreu RN in my presence, and it is both accurate and complete 841 .
[2016-11-16] MEDS ORDERED: methylPREDNISolone SOD SUC 40 MG/1 ML VIAL IV SCH (21:00)
[2016-11-17] MEDS: SODIUM CHLORIDE 0.9% 1,000 ML IV SCH (05:46)
[2016-11-17] MEDS: IPRATROPIUM 500 MCG/2.5 ML NEB RESP TX SCH ×2 (07:14→10:35)
[2016-11-17] MEDS: ALBUTEROL 2.5 MG/3 ML NEB RESP TX SCH (07:14)
--- NOTE | 2016-11-17 07:39 | Pulmonology Progress Note ---
Pulmonary - PN: Subj Interval history: This 66-year-old white male has COPD and tracheomalacia. He came in with an acute exacerbation with pneumonia. He is having difficulty clearing secretions. He is getting Pulmozyme and a cappella respiratory therapy. Also on steroids and antibiotics and bronchodilators. May yet need to have bronchoscopy. Will decide tomorrow after I see him. 11/13/2016 patient is feeling a little better and sounds a little better. He had some vomiting early this morning. I think we would do best to continue current medications and hold off on bronchoscopy for now. 11/14/2016 patient is feeling better and getting some sputum up now. Will not require bronchoscopy. However he does need a few more days of IV antibiotics due to his tracheomalacia. 11/15/2016 patient is a little better. Coughing up some phlegm. Needs a few more days of IV medicines for now. 11/16/2016 patient is having some diarrhea. I will hold his antibiotics for the next day or 2. If the diarrhea resolves we will keep him off. He is a little better as far as his lungs are concerned. He did have 1 stool negative for C. difficile. 11/17/2016 patient feeling better. Can be discharged from my standpoint. He is asked me to see him back in the clinic about his tracheomalacia so I will set up an appointment in 6 weeks. Exam (Progress Note) - Constitutional Vitals: Period Temp Pulse Resp BP Sys/Aguilar Pulse Ox Last 24 Hr 97.3 F-98 F 47-83 15-20 121-153/60-79 93-99 Exam: He is alert oriented vital signs normal. Pupils react to light. Throat is clear. Neck supple no bruits. Chest reveals minimal rhonchi bilaterally and prolonged expiratory phase. Heart normal rate and rhythm no murmurs. Abdomen soft nontender no masses. Bowel sounds present. Extremities no clubbing cyanosis or edema. Calves nontender. Results - Labs CBC & BMP: 11/16/16 04:23 11/16/16 04:23 Lab Results: I have reviewed the past 24 hour labs Assessment and Plan (1) Tracheomalacia Status: Acute Assessment and plan: This makes it difficult for him to cough and clear secretions. If his sputum production does not improve we will need to bronchoscope him in a couple of days. 11/13/2016 patient is getting some sputum up. Lungs are sounding better. Will not plan bronchoscopy yet. 11/14/2016 patient is able to get sputum out now. Will not need bronchoscopy. However due to the tracheomalacia and the length of time it takes to clear his airways, he will need IV antibiotics for a few more days. 11/15/2016 continuing with bronchodilators chest PT steroids antibiotics. 11/16/2016 we were giving a longer course of antibiotics because of the tracheomalacia. However with his diarrhea we do need to stop them and see how he does. He may have had enough already 11/17/2016 when I see him back in the clinic we will get him started on Zithromax Monday. Infections with tracheomalacia can be treated similar to infected bronchiectasis. Current Visit: Yes (2) COPD exacerbation Status: Acute Assessment and plan: He sounds better today. Continue with bronchodilators. Continue with antibiotics and steroids. 11/13/2016 lungs sound better. Continuing with bronchodilators and steroids 11/14/2016 he does sound better. Taper steroids a little. 11/15/2016 we will not taper steroids further now. 11/16/2016 will taper steroids a little further today too. 11/17/2016 can stop oral prednisone and another 5 days or so. Current Visit: Yes (3) Left lower lobe pneumonia Status: Acute Assessment and plan: Continue with empiric antibiotics. Follow-up x-ray Monday11/13/2016 continuing with antibiotics. 11/14/2016 repeat chest x-ray tomorrow. 11/15/2016 chest x-ray is a little bit better. 11/16/2016 clinically improved 11/17/2016 clinically improved. Current Visit: Yes (4) Tobacco abuse Status: Chronic Assessment and plan: Discussed with him yesterday the need to stop smoking. We will continue to discuss it with him. 11/14/2016 continuing to discuss on a daily basis 11/17/2016 will discuss on return to the office as well. Current Visit: Yes
[2016-11-17] MEDS: ENOXAPARIN 40 MG/0.4 ML SYRINGE SUBCUT SCH (08:44)
[2016-11-17] MEDS: buPROPion 75 MG TABLET PO SCH (08:45)
[2016-11-17] MEDS: LOSARTAN 50 MG TABLET PO SCH (08:45)
[2016-11-17] MEDS: MINOXIDIL 2.5 MG TABLET PO SCH (08:46)
[2016-11-17] MEDS: amLODIPine 10 MG TABLET PO SCH (08:46)
[2016-11-17] MEDS: NEBIVOLOL 5 MG TABLET PO SCH (08:46)
[2016-11-17] MEDS: LACTOBACILLUS ACIDOPHILUS/BULGARICUS CAPLET PO SCH (08:46)
[2016-11-17] MEDS: FUROSEMIDE 20 MG TABLET PO SCH (08:47)
[2016-11-17] MEDS: MAGNESIUM CHLORIDE 64 MG TABLET PO SCH (08:47)
[2016-11-17] MEDS: ASPIRIN EC 325 MG TABLET PO SCH (08:48)
[2016-11-17] MEDS: PANTOPRAZOLE 40 MG TABLET PO SCH (08:48)
[2016-11-17] MEDS: ROFLUMILAST 500 MCG TABLET PO SCH (08:48)
[2016-11-17] MEDS: CARVEDILOL 3.125 MG TABLET PO SCH (08:49)
[2016-11-17] MEDS: hydroCHLOROthiazide 25 MG TABLET PO SCH (08:49)
[2016-11-17] MEDS: OMEGA 3 ACID ETHYL ESTERS 1 GM CAPSULE PO SCH (08:53)
--- NOTE | 2016-11-17 10:51 | Discharge Summary ---
Hospital Course - Hospital Course Hospital Course: Patient came in the hospital with severe dyspnea at rest and basically had an episode of COPD acute onset on chronic issues with findings of tracheomalacia. We did get pulmonary to see him and he was scoped at which time the tracheomalacia was appreciated. He was put on antibiotics placed on steroids and given breathing treatments and over the course of a fairly lengthy period He finally turned around, and responded to the treatment. He has easy to decompensate and I am going to have to watch him closely in the clinic. He does usually follow instructions when he goes home. We discussed with him that he should never smoke and he voices understanding about this. he is very anxious to go home at this time. Instructions were given, he is to follow-up closely with me in the clinic Diagnosis - Discharge Diagnosis (1) Atypical chest pain Status: Ruled-out (2) COPD exacerbation Status: Resolved (3) Fever Status: Resolved (4) Left lower lobe pneumonia Status: Resolved (5) Coronary artery disease Status: Chronic (6) Hypertension Status: Chronic (7) Diarrhea Status: Resolved Specialty Discharge - Follow Up or Referrals Follow up with: Felix Christie MD [Physician] - 12/03/16 2:30 pm (cbc,bmp, xray) Jose Goodman DO [Physician] - 1 Month (12/19/2016 1pm) Discharge Plan - Discharge Data Disposition: Disch To Home/Self Care Condition at Discharge: Stable Discharge Diet: advance to your usual diet, heart healthy Activity: increase activity as tolerated Hygiene: no restrictions Weight Bearing at Discharge: full weight bearing, weight bear as tolerated Driving: no restrictions Contact your physician if you experience:: fever over 101, Shortness of breath - Discharge Medications New predniSONE TAB [PredniSONE] 10 mg PO DIRECTED #30 tablet Lactobacillus Acidoph/Bulgar [Bacid] 2 caplet PO DAILY caplet Continue Aspirin [Ecotrin] 325 mg PO QAM buPROPion [Wellbutrin] 75 mg PO BID Magnesium Chloride [Mag Delay] 64 mg PO QAM Losartan Potassium 100 mg PO QAM amLODIPine [Norvasc] 10 mg PO QAM Pantoprazole Tab [Protonix Tab] 40 mg PO QAM Furosemide Tab [Lasix Tab] 10 mg PO QAM Albuterol Neb [Proventil Neb] 2.5 mg RESP TX BID Ipratropium/Albuterol Inhaler [Combivent Respimat Inhaler] 1 - 2 puff INH QID PRN PRN Reason: Shortness Of Breath/Wheezing Krill/Om-3/Dha/Epa/Phospho/Ast [[place]-3 Krill Oil 300 mg Sfgl] 1 each PO QAM Nitroglycerin Sl Tab [Nitrostat] 0.4 mg SL Q5M PRN PRN Reason: Chest Pain Tiotropium Inhalation [Spiriva Handihaler] 18 mcg INH QAM Simvastatin 10 mg PO DAILY Ipratropium/Albuterol Inhaler [Combivent Respimat Inhaler] 1 - 2 puffs RESP TX DIRECTED PRN PRN Reason: Shortness Of Breath Cilostazol [Pletal] 50 mg PO BID Carvedilol [Coreg] 3.125 mg PO BID hydroCHLOROthiazide [Hydrochlorothiazide] 25 mg PO QAM Roflumilast [Daliresp] 500 mcg PO QAM Minoxidil 2.5 mg PO BID Acetaminophen Tab [Tylenol Tab] 500 mg PO Q4H Nebivolol [Bystolic] 5 mg PO QAM Aspirin [Ecotrin] 325 mg PO DAILY - Follow Up or Referral Follow Up: Felix Christie MD [Physician] - 12/03/16 2:30 pm (cbc,bmp, xray) Jose Goodman DO [Physician] - 1 Month (12/19/2016 1pm) - Forms/Instructions Instructions: Chronic Obstructive Pulmonary Disease (DC) Exam - Constitutional Vitals: Period Temp Pulse Resp BP Sys/Aguilar Pulse Ox Last 24 Hr 97.3 F-98 F 47-60 15-21 121-141/60-79 93-99 DS: Provider Date of admission: 11/10/16 21:19 Primary care physician: . No PCP Attending physician on admission: Jose Goodman DO Consults: 11/10/16 23:46 Consult to Case Mgmt/Social Srvs [CONS] Routine Reason for Case Mgmt/Social Srvs: Discharge Planning 11/11/16 06:58 Consult to Physician [CONS] Routine Comment: cp,hx mi Consulting Provider: Mario Monique 11/11/16 06:59 Consult to Physician [CONS] Routine Comment: cough,copd Consulting Provider: [facility] Discharging clinician: Jose Goodman DO
[2016-11-17 11:43] VITALS: BP 132/68
== END 2016-11-17 12:10 | disposition home or self-care (01) | DRG 190 ==
LOC: N.ED 19:29 → N.EDINP 21:19 → N.TELEN 22:59 → N.2E 11-16 05:18 → UNDODISIN 11-16 11:00
PROVIDERS: ADMIT Family Medicine; ATTEND Family Medicine